=== PATIENT | female | born 1930 | race Caucasian/White ===

== ENCOUNTER 2017-01-16 17:28 | Inpatient (IN) | payer MEDICARE ==
[~2017-01-16] VITALS: Ht 157.5 cm; Wt 68.6 kg
[2017-01-16] MEDS ORDERED: IPRATRPIUM/ALBUTEROL 0.5/2.5MG 3 ML NEBU. ONE (18:30)
--- NOTE | 2017-01-16 18:32 | PHYS DOC ---
General Chief Complaint: SHORTNESS OF BREATH Stated Complaint: SOA Time Seen by MD: 18:13 Source: patient, family Problems: History of Present Illness Initial Comments Patient with daughter for shortness of breath and cough. Patient states it started on Sunday. Has been increasing since that time. She does have a cough which is nonproductive but sounds wet. Today she's also been short of breath. She apparently went to her physician's office yesterday received a prescription for Zithromax which she didn't get filled. However, there's been no change. She' s had no real fever or chills. There is no runny nose or sore throat. She does have the shortness of breath with cough is noted. There is no chest pain. No nausea vomiting or abdominal pain. She has no change amount of bladder habits and she denies any acute focal extremity or neurologic complaints. She states she does have some chronic swelling in the legs but this is not acutely changed or different. Patient has used Zithromax home as well as an albuterol nebulizer twice today without help. She. Has that from her previous episode of the lung infection last year. Other than as noted there's been nothing done for this home and there are no other increasing or decreasing factors noted. Patient's concerned that she might have pneumonia. She had no chest x-ray done at the doctor's office. Patient's past medical history is remarkable for high blood pressure. She is a nonsmoker and nonuser of ethanol. Allergies: Coded Allergies: Penicillins (Verified Allergy, Intermediate, 01/16/17) Past Medical History Medical History: hypertension Social History Smoker: non-smoker Alcohol: none Review of Systems All Other Systems: Reviewed and Negative Physical Exam General Appearance: WD/WN, no apparent distress Ear, Nose, Throat: normal ENT inspection, normal pharynx Neck: full range of motion, supple, normal inspection Respiratory: no respiratory distress, no accessory muscle use, rhonchi Cardiovascular: regular rate, rhythm, no edema Gastrointestinal: non tender, soft, no organomegaly Back: no CVA tenderness, no vertebral tenderness Extremities: non-tender, normal inspection, swelling Neurologic/Psychiatric: alert, normal mood/affect, oriented x 3 Skin: normal color Lymphatic: no adenopathy Comments Generally this is a delightful elderly female in no acute distress. Vitals are as noted. Pertinent findings on physical exam shows her to have bilateral hearing aids. The throat is clear. Neck is supple without adenopathy or JVD. There's no meningeal signs. Chest shows good airflow. There is no tachypnea. There is no retractions. She verbalizes without difficulty. She does have diffuse rhonchi throughout all lung reyes, somewhat worse on the right. She is in no acute respiratory distress. Cardiac exam shows regular rate and rhythm without murmur. The abdomen is soft and nontender without masses or organomegaly. No peritoneal findings. Back shows no CVA tenderness. Extremities show 1+ bilateral lower extremity edema without redness cord asymmetry or signs of DVT. Patient awake alert oriented and cooperative. Remainder of physical exam is clinically unremarkable. Orders, Labs, Meds Old charts note no prior ER visits within the current system. EKG shows sinus 120. There is left axis deviation. There is a single isolated PVC. There are no acute ST or T-wave changes. Labs today show essentially unremarkable CBC and CMP. Blood gases shows slight hypoxia with pH 746, PCO2 36, and PO2 of 64. Patient is on 2 L in the room at this time. Chest x-ray shows what appears to be left basilar infiltrate with a small pleural effusion. 2010 Patient resting in the ER. Her conditions overall unchanged. She still does appear to be mildly short of breath. I discussed with the patient and her family that given her failure of outpatient treatment of persistent dyspnea, as well as clear findings on chest x-ray, probably the safest course of action would be admission for IV antibiotics, steroids, and breathing treatments. After discussion, she is agreeable to same. I discussed case with Dr. Penny of the hospitalist service who graciously agrees to the patient for admission. I' ve written initial holding orders including antibiotics including Rocephin and Zithromax. Patient does have an allergy to penicillin but is unknown if she's ever been able to take cephalosporins before. I did explain the 10% cross- reactivity wrist family members and the patient, and they accept the risk. We' ll certainly monitor for signs of reaction. Also written for DuoNeb and steroids. Patient is resting at this time awaiting transfer to floor and hospitalist care. BAILEY PATRICIA MD Jan 16, 2017 18:32
[2017-01-16] MEDS ORDERED: IPRATRPIUM/ALBUTEROL 0.5/2.5MG 3 ML NEBU. NEB ONE (18:45)
[2017-01-16] MEDS ORDERED: PREDNISONE 10 MG TABLET PO ONE (18:45)
--- NOTE | 2017-01-16 18:48 | EKG ---
[address] [address] Test Date: 2017-01-16 Test Time: 18:48:04 Pat Name: CRISTAL BAHENA Department: Room: Gender: F Senior Operations Analyst: : 1930 Requested By: BAILEY PATRICIA Order Number: [id number] Reading MD: Measurements Intervals [place] Rate: 120 P: 23 CT: 162 QRS: -26 QRSD: 88 T: 57 QT: 314 QTc: 449 Interpretive Statements SINUS TACHYCARDIA VENTRICULAR PREMATURE COMPLEX(ES) LEFTWARD AXIS LVH WITH REPOLARIZATION ABNORMALITY QRS(T) CONTOUR ABNORMALITY CONSIDER ANTEROSEPTAL MYOCARDIAL DAMAGE ABNORMAL ECG RI6.01 Unconfirmed report No previous ECG available for comparison
[2017-01-16 19:03] LABS: BASO % 1 % (0-3); EOS % 0 % (0-3); HEMATOCRIT 39.4 % (36.0-47.0); HEMOGLOBIN 13.3 g/dL (12.0-15.5); LYMPH # 0.6 x10^3/uL (1.0-4.8); LYMPH % 18 % (24-48); MEAN CORPUSCULAR HEMOGLOBIN 29 pg (25-35); MEAN CORPUSCULAR HGB CONC 34 g/dL (31-37); MEAN CORPUSCULAR VOLUME 86 fL (79-100); MONO # 0.4 x10^3/uL (0.0-1.1); MONO % 12 % (0-9); NEUT # 2.6 x10^3uL (1.8-7.7); NEUT % 70 % (31-73); PLATELET COUNT 154 x10^3/uL (140-400); RED BLOOD COUNT 4.58 x10^6/uL (3.50-5.40); RED CELL DISTRIBUTION WIDTH 15.1 % (11.5-14.5); WHITE BLOOD COUNT 3.7 x10^3/uL (4.0-11.0)
[2017-01-16 19:20] LABS: BGAS PH 7.47 (7.35-7.45)
[2017-01-16 19:42] LABS: ALBUMIN 3.8 g/dL (3.4-5.0); ALBUMIN/GLOBULIN RATIO 1.3 (1.0-1.7); CALCIUM 8.8 mg/dL (8.5-10.1); CREATININE 0.7 mg/dL (0.6-1.0); TOTAL BILIRUBIN 0.3 mg/dL (0.2-1.0); TOTAL PROTEIN 6.7 g/dL (6.4-8.2)
[2017-01-16 20:20] LABS: INFLUENZA A PATIENT NEGATIVE (NEGATIVE); INFLUENZA B PATIENT POSITIVE (NEGATIVE)
--- NOTE | 2017-01-16 21:30 | NUR ---
Shannon Jarrett a 86 y/o female was admitted to Dr Penny's service for pneumonia and influenza B. Pt is accompanied by her 2 granddaughters, Katy and Tressa. Pt settled into room, admission assessment and questions completed. Will proceed with orders and poc.
[2017-01-16 21:52] VITALS: BP 183/92
[2017-01-17] MEDS ORDERED: SIMV20TA3 PO (00:43)
[2017-01-17] MEDS ORDERED: FURO-69 PO (00:43)
[2017-01-17] MEDS ORDERED: LOSA1TAB16 PO (00:43)
[2017-01-17] MEDS ORDERED: POTA10TA5 PO (00:43)
[2017-01-17] MEDS ORDERED: MELO-156 PO (00:43)
[2017-01-17] MEDS ORDERED: DILT180C2 PO (00:43)
[2017-01-17 02:59] VITALS: BP 137/84
[2017-01-17] MEDS: CEFTRIAXONE SODIUM 1 GM in IV NORMAL SALINE 50ML 50 ML IV SCH (03:00)
[2017-01-17] MEDS ORDERED: IV NORMAL SALINE 50ML 50 ML ONE (03:02)
[2017-01-17] MEDS ORDERED: IV NORMAL SALINE 250ML 250 ML ONE ×2 (03:03→03:32)
[2017-01-17] MEDS: AZITHROMYCIN 500 MG in IV NORMAL SALINE 250ML 250 ML IV SCH (03:30)
[2017-01-17] MEDS ORDERED: ACETAMINOPHEN 325 MG TABLET PO PRN (03:45)
[2017-01-17] MEDS: ACETAMINOPHEN 325 MG TABLET PO PRN ×3 (03:45→23:17)
[2017-01-17] MEDS ORDERED: ACETAMINOPHEN 325 MG TABLET PO ONE ×2 (03:49→03:55)
[2017-01-17] MEDS: IPRATRPIUM/ALBUTEROL 0.5/2.5MG 3 ML NEBU. NEB SCH ×5 (04:00→22:07)
[2017-01-17 05:49] VITALS: BP 157/80
[2017-01-17 06:36] LABS: BASO % 0 % (0-3); EOS % 0 % (0-3); HEMATOCRIT 37.2 % (36.0-47.0); HEMOGLOBIN 12.7 g/dL (12.0-15.5); LYMPH # 0.5 x10^3/uL (1.0-4.8); LYMPH % 25 % (24-48); MEAN CORPUSCULAR HEMOGLOBIN 29 pg (25-35); MEAN CORPUSCULAR HGB CONC 34 g/dL (31-37); MEAN CORPUSCULAR VOLUME 85 fL (79-100); MONO # 0.2 x10^3/uL (0.0-1.1); MONO % 10 % (0-9); NEUT # 1.2 x10^3uL (1.8-7.7); NEUT % 64 % (31-73); PLATELET COUNT 147 x10^3/uL (140-400); RED BLOOD COUNT 4.39 x10^6/uL (3.50-5.40); RED CELL DISTRIBUTION WIDTH 14.7 % (11.5-14.5)
[2017-01-17 06:40] LABS: WHITE BLOOD COUNT 1.9 x10^3/uL (4.0-11.0)
[2017-01-17 06:50] LABS: ALBUMIN 3.1 g/dL (3.4-5.0); CALCIUM 8.4 mg/dL (8.5-10.1); CREATININE 0.7 mg/dL (0.6-1.0); MAGNESIUM 1.5 mg/dL (1.8-2.4); POTASSIUM 3.6 mmol/L (3.5-5.1); TOTAL BILIRUBIN 0.2 mg/dL (0.2-1.0); TOTAL PROTEIN 6.3 g/dL (6.4-8.2)
[2017-01-17] MEDS: methylPREDNISolone SOD SUCC PF 125 MG/2 ML VIAL. IV SCH ×4 (07:00→23:19)
[2017-01-17 08:09] LABS: % BANDS 6 % (0-9); % LYMPHS 29 % (24-48); % MONOS 3 % (0-10); % SEGS 62 % (35-66); PLT ESTIMATE DECREASED (ADEQUATE)
[2017-01-17] MEDS: OSELTAMIVIR 75 MG CAPSULE PO SCH ×2 (09:00→20:39)
--- NOTE | 2017-01-17 09:47 | NUR ---
IP: patient is + influenza B, requires droplet precautions until 5 days of treatment.
--- NOTE | 2017-01-17 10:40 | RAD ---
Portable chest, 01/16/2017: History: Shortness of breath No previous chest radiograph is available at this time for comparison purposes. Surgical clips overlie the lower chest to the midline. The heart appears to be within normal limits in size. There is moderate calcific plaquing of aorta. The pulmonary vascularity is normal. There is a moderate left basilar opacity. The appearance suggests partial eventration of the hemidiaphragm versus a mass or dense pulmonary consolidation. There is a suggestion of associated pleural fluid. The right chest is clear. A left shoulder prosthesis is in place. There is severe arthritic change at the right shoulder. IMPRESSION: Large left lower chest opacity with diagnostic considerations including diaphragmatic eventration, dense parenchymal consolidation or a pulmonary mass, with probable pleural fluid. CT scanning is suggested for further evaluation, if not already performed elsewhere.
[2017-01-17 10:53] VITALS: BP 145/77
[2017-01-17 15:01] VITALS: BP 128/64
[2017-01-17] MEDS ORDERED: OMEP20TA PO (16:17)
[2017-01-17] MEDS: DILTIAZEM HCL 180 MG CAP.ER.24H PO SCH (17:00)
--- NOTE | 2017-01-17 17:00 | HP ---
ADMIT DATE: 01/16/2017 HISTORY OF PRESENT ILLNESS: The patient is an 86-year-old female patient, who came to the Emergency Room with a complaint of shortness of breath, cough which is mostly dry, just started last Sunday, has been increasing since that time. She does have cough, which is nonproductive, but sounds with. She apparently went to her physician's office on Sunday and was started on Zithromax, which she did not get filled. She denied any chills, rigors or fever. There is no runny nose or sore throat. Denied any chest pain, denied any nausea, vomiting or abdominal pain. She did complain of diarrhea, but denied any other complaint. She was evaluated in the Emergency Room, was found to be positive for influenza B and chest x-ray showed that she has left lower lobe pneumonia, was admitted for treatment for community-acquired pneumonia and influenza, was started on IV Rocephin, Zithromax and Tamiflu. PAST MEDICAL HISTORY: Significant for hypertension and osteoarthritis. PAST SURGICAL HISTORY: Significant for bilateral total knee arthroplasty, left shoulder replacement, bilateral cataract extraction, tonsillectomy, appendectomy, cholecystectomy, total abdominal hysterectomy and bilateral salpingo-oophorectomy, bilateral carpal tunnel release and right elbow surgery. ALLERGIES: She is allergic to PENICILLIN. MEDICATIONS: She is currently on following medications: She is on Diltiazem 180 mg once a day, furosemide 20 mg once a day, Losartan/hydrochlorothiazide 50/12.5 mg once a day, meloxicam 7.5 mg once a day, potassium chloride mEq once a day and simvastatin 20 mg at bedtime. FAMILY HISTORY: She has one sister who is younger and seemingly healthy, one brother in his 30s in a motor vehicle accident. Her father in his early 90s due to heart failure and mother also in her early 90s due to heart failure. SOCIAL HISTORY: She is , has 4 sons. She has never smoked. Does not drink alcohol; however, she stated that she gambles. She is mostly independent to take care of herself, although she has apparently a very loving and supportive family. REVIEW OF SYSTEMS: The patient denied any blurring of vision, cataract, glaucoma or macular degeneration. Denied any earache, tinnitus or sensorineural deafness. Denied any nosebleeds, stuffy nose or postnasal drip. Denied any sore throat, sore tongue, toothache, hoarseness of voice or difficulty swallowing. Denied any nausea, vomiting, but did complain of diarrhea. Denied any dysuria, frequency or hematuria. Denied any chest pain. Did complain of shortness of breath, cough, which is mostly dry. Denied any dizziness, lightheadedness. Denied any chills, rigors or fever. PHYSICAL EXAMINATION: GENERAL: On arrival to the Emergency Room; she looked well and was clearly in no apparent respiratory distress, slightly pale, no jaundice, cyanosis or thyromegaly. No jugular venous distention. No limb edema. VITAL SIGNS: Her heart rate was 113, blood pressure was 183/92, temperature was 99.9, respiratory rate 20, and oxygen saturation was 96% on 2 liters of oxygen. HEAD, EYES, EARS, NOSE AND THROAT: Showed normocephalic, atraumatic. NECK: Supple. HEART: Showed normal first and second heart sounds with no gallop, rub or murmur. CHEST: Shows central trachea, equally reduced expansion, reduced air entry, sounds with bilateral crepitations with left side crepitation and few scattered rhonchi. ABDOMEN: Distended, soft, nontender. NEUROLOGIC: She was awake, alert, responding appropriately. Cranial nerves intact. EXTREMITIES: She moves extremities without difficulty. She ambulates usually with a cane. LABORATORY DATA: In the Emergency Room showed that her white cell count was 3700, hemoglobin 13.3, hematocrit 39.4, MCV 86 and platelet count of 154,000 with normal manual differential. Serum sodium was 141, potassium 4, chloride 102, bicarbonate 26, anion gap of 13, BUN 11, creatinine 0.7, estimated GFR was 79 mL per minute. Her glucose was 100, calcium was 8.8. Total bilirubin, AST, ALT, alkaline phosphatase were normal. Total protein 6.7. Her arterial blood gases showed a pH of 7.47, pCO2 of 36, pO2 of 64, bicarbonate 25, and oxygen saturation was 93% and FiO2 21%. Her influenza A was negative. Influenza B was positive. Her chest x-ray showed that she has a large left lower chest opacity with diagnostic consideration including diaphragmatic eventration, dense parenchymal consolidation or pulmonary mass with probable pleural fluid. CT scan is suggested for further evaluation if not already performed elsewhere. ASSESSMENT AND PLAN: The patient was admitted with community-acquired pneumonia, influenza. We will start her on IV ceftriaxone, Zithromax as well as Tamiflu. We will continue with all her medication and follow her closely. YOLY MAGUIRE MD DR: AGUSTIN/jo ann JOB#: [id number] / [id number]
[2017-01-17 19:30] VITALS: BP 139/73
[2017-01-17] MEDS: ACETAMINOPHEN/CODEINE 300/30MG TABLET PO PRN (20:39)
[2017-01-17] MEDS: GUAIFENESIN ER 600 MG TABLET.ER PO SCH (20:40)
[2017-01-17] MEDS: SIMVASTATIN 20 MG TABLET PO SCH (20:40)
[2017-01-17] MEDS: POTASSIUM CHLORIDE 10 MEQ TABLET.ER. PO SCH (20:40)
[2017-01-17] MEDS ORDERED: MONTELUKAST 10 MG TABLET. PO SCH (21:00)
[2017-01-18 01:00] VITALS: BP 107/50
[2017-01-18] MEDS: CEFTRIAXONE SODIUM 1 GM in IV NORMAL SALINE 50ML 50 ML IV SCH (01:27)
[2017-01-18] MEDS: AZITHROMYCIN 500 MG in IV NORMAL SALINE 250ML 250 ML IV SCH (02:12)
[2017-01-18] MEDS: methylPREDNISolone SOD SUCC PF 125 MG/2 ML VIAL. IV SCH ×2 (05:07→12:15)
[2017-01-18] MEDS: IPRATRPIUM/ALBUTEROL 0.5/2.5MG 3 ML NEBU. NEB SCH ×6 (05:14→22:29)
[2017-01-18 06:00] VITALS: BP 160/74
[2017-01-18 06:30] LABS: BASO % 0 % (0-3); EOS % 0 % (0-3); HEMATOCRIT 39.7 % (36.0-47.0); HEMOGLOBIN 13.4 g/dL (12.0-15.5); LYMPH # 0.4 x10^3/uL (1.0-4.8); LYMPH % 7 % (24-48); MEAN CORPUSCULAR HEMOGLOBIN 29 pg (25-35); MEAN CORPUSCULAR HGB CONC 34 g/dL (31-37); MEAN CORPUSCULAR VOLUME 86 fL (79-100); MONO # 0.1 x10^3/uL (0.0-1.1); MONO % 3 % (0-9); NEUT % 91 % (31-73); PLATELET COUNT 165 x10^3/uL (140-400); RED BLOOD COUNT 4.64 x10^6/uL (3.50-5.40); RED CELL DISTRIBUTION WIDTH 14.9 % (11.5-14.5); WHITE BLOOD COUNT 5.6 x10^3/uL (4.0-11.0)
[2017-01-18 06:48] LABS: ALBUMIN 3.6 g/dL (3.4-5.0); CALCIUM 8.7 mg/dL (8.5-10.1); GFR 52.3; MAGNESIUM 1.8 mg/dL (1.8-2.4); POTASSIUM 3.2 mmol/L (3.5-5.1); TOTAL BILIRUBIN 0.3 mg/dL (0.2-1.0); TOTAL PROTEIN 7.1 g/dL (6.4-8.2)
[2017-01-18] MEDS: LOSARTAN 50 MG TABLET. PO SCH (08:32)
[2017-01-18] MEDS: DILTIAZEM HCL 180 MG CAP.ER.24H PO SCH (08:32)
[2017-01-18] MEDS: PANTOPRAZOLE 40 MG TABLET. PO SCH (08:33)
[2017-01-18] MEDS: GUAIFENESIN ER 600 MG TABLET.ER PO SCH ×2 (08:33→18:26)
[2017-01-18] MEDS: POTASSIUM CHLORIDE 10 MEQ TABLET.ER. PO SCH ×3 (08:33→18:27)
[2017-01-18] MEDS: OSELTAMIVIR 75 MG CAPSULE PO SCH ×2 (08:33→18:26)
[2017-01-18] MEDS ORDERED: FUROSEMIDE 20 MG TABLET PO SCH (09:00)
[2017-01-18] MEDS ORDERED: MELOXICAM 7.5 MG TABLET PO SCH (09:00)
[2017-01-18] MEDS ORDERED: HYDROCHLOROTHIAZIDE 12.5 MG CAPSULE PO SCH (09:00)
[2017-01-18] MEDS ORDERED: IOHEXOL 300 MG/ML 75 ML VIAL. IV ONE (10:15)
[2017-01-18] MEDS ORDERED: CONTRAST GIVEN MC PRN (10:30)
--- NOTE | 2017-01-18 13:36 | RAD ---
CT of the chest with contrast, 01/18/2017: History: Left lower chest mass Multidetector CT imaging was performed following an IV bolus injection of iodinated contrast material. There is moderate calcific plaquing of the thoracic aorta without evidence of aneurysm. Scattered coronary artery calcifications are present. Several small nonspecific thyroid nodules are incompletely delineated, more numerous on the right. Calcified mediastinal and right hilar lymph nodes are present. No mediastinal adenopathy is evident. There is a moderate-sized hiatal hernia. There are adjacent surgical clips. The density seen in the left lower chest on the recent chest radiograph is predominantly due to elevation of left hemidiaphragm. There is mild to moderate underlying atelectasis in the inferior aspect of the left lower lobe and to a lesser degree in the lingula. There are also [id number] linear opacities in the right lung base compatible with atelectasis and/or scarring. Calcified granulomata are present in the right lung. There is moderate multilevel hypertrophic degenerative change in the spine. IMPRESSION: 1. Moderate elevation of the left hemidiaphragm with mild to moderate underlying left basilar atelectasis. 2. Mild linear atelectasis and/or scarring in the right lung base. 3. Calcific plaquing of the aorta and coronary arteries. 4. Nonspecific small thyroid nodules. 5. Moderate-sized hiatal hernia. PQRS Compliance Statement: One or more of the following individualized dose reduction techniques were utilized for this examination: 1. Automated exposure control 2. Adjustment of the mA and/or kV according to patient size 3. Use of iterative reconstruction technique
[2017-01-18] MEDS ORDERED: VIT1CAPS12 PO (13:54)
[2017-01-18] MEDS ORDERED: VIT1CAPS11 PO (13:56)
[2017-01-18 14:58] VITALS: BP 116/62
[2017-01-18] MEDS: SIMVASTATIN 20 MG TABLET PO SCH (17:20)
[2017-01-18] MEDS: MULTIVITAMIN PRESERVISION CAPSULE. PO SCH ×2 (18:26→18:27)
[2017-01-18] MEDS: MONTELUKAST 10 MG TABLET. PO SCH (18:27)
[2017-01-18 19:32] VITALS: BP 156/75
[2017-01-18] MEDS: ACETAMINOPHEN 325 MG TABLET PO PRN (20:36)
[2017-01-18 22:45] VITALS: BP 117/66
[2017-01-19] MEDS: AZITHROMYCIN 500 MG in IV NORMAL SALINE 250ML 250 ML IV SCH (00:09)
[2017-01-19] MEDS: CEFTRIAXONE SODIUM 1 GM in IV NORMAL SALINE 50ML 50 ML IV SCH (00:09)
[2017-01-19] MEDS: IPRATRPIUM/ALBUTEROL 0.5/2.5MG 3 ML NEBU. NEB SCH ×6 (04:00→20:18)
[2017-01-19 05:34] VITALS: BP 152/74
[2017-01-19 06:42] LABS: HEMATOCRIT 38.7 % (36.0-47.0); RED BLOOD COUNT 4.55 x10^6/uL (3.50-5.40); RED CELL DISTRIBUTION WIDTH 15.3 % (11.5-14.5); WHITE BLOOD COUNT 11.9 x10^3/uL (4.0-11.0)
[2017-01-19 06:55] LABS: CALCIUM 8.5 mg/dL (8.5-10.1); CREATININE 1.3 mg/dL (0.6-1.0); GFR 38.7; POTASSIUM 3.7 mmol/L (3.5-5.1)
--- NOTE | 2017-01-19 08:15 | PN ---
DATE: 01/18/2017 SUBJECTIVE: The patient is resting, slightly propped up in bed, in no apparent distress. She is definitely more awake and alert. The cough is much less. We did a CT scan of the chest, which showed that there is moderate elevation of the left hemidiaphragm with [id number] underlying left basilar atelectasis, mild linear atelectasis, and/or scarring in the right lung base, calcific plaquing of the aorta and coronary arteries, nonspecific small thyroid nodules, and moderate-sized hiatal hernia. OBJECTIVE: GENERAL: When examining her, she was sitting comfortably in her chair in no apparent respiratory distress. She was pale; no jaundice, cyanosis, or thyromegaly. No jugular venous distention. No limb edema. VITAL SIGNS: Her heart rate was 80, blood pressure was 160/74, temperature was 98, respiratory rate 20, and oxygen saturation was 93% on room air. HEAD, EYES, EARS, NOSE AND THROAT: Showed normocephalic and atraumatic. NECK: Supple. HEART: Showed normal first and second heart sounds with no gallop, rub, or murmur. CHEST: Clear to auscultation. No crepitation or rhonchi. ABDOMEN: Distended, soft, and nontender. NEUROLOGIC: She was awake and alert, seems to be much more comfortable today, less short of breath. All her cranial nerves are intact. She moves extremities without difficulty. She ambulates with a walker. LABORATORY DATA: Her lab work this morning showed a serum sodium 139, potassium 3.2, chloride 101, bicarbonate 24, anion gap of 14, BUN 23, creatinine 1, estimated GFR was 52 mL per minute, her glucose was 114, calcium was 8.7, and magnesium was 1.8. Total bilirubin, AST, ALT, and alkaline phosphatase were normal. Total protein was 7.1 and albumin was 3.6. Her white cell count is up to 5600, hemoglobin 13.4, hematocrit 39.7, MCV 86, and platelet count 165,000 with manual differential showed 91% polymorphs and 7% lymphocytes. PLAN: The plan is to continue with potassium supplement. Continue with pain medication. Continue with Solu-Medrol, ceftriaxone, Zithromax, and oseltamivir. I will cut down her steroids to 40 mg and repeat her lab work tomorrow and increase her potassium supplement and discontinue the meloxicam. YOLY MAGUIRE MD DR: AGUSTIN/jo ann JOB#: [id number] / [id number]
[2017-01-19] MEDS: methylPREDNISolone SOD SUCC PF 40 MG/ML VIAL. IV SCH ×2 (08:59→20:03)
[2017-01-19] MEDS: POTASSIUM CHLORIDE 10 MEQ TABLET.ER. PO SCH ×2 (09:00→20:02)
[2017-01-19] MEDS: GUAIFENESIN ER 600 MG TABLET.ER PO SCH ×2 (09:00→20:02)
[2017-01-19] MEDS: LOSARTAN 50 MG TABLET. PO SCH (09:00)
[2017-01-19] MEDS ORDERED: SIMVASTATIN 20 MG TABLET PO SCH (09:00)
[2017-01-19] MEDS: MULTIVITAMIN I-VITE TABLET. PO SCH (09:01)
[2017-01-19] MEDS: PANTOPRAZOLE 40 MG TABLET. PO SCH (09:01)
[2017-01-19] MEDS: MULTIVITAMIN PRESERVISION CAPSULE. PO SCH ×2 (09:01→20:03)
[2017-01-19] MEDS: OSELTAMIVIR 75 MG CAPSULE PO SCH ×2 (09:01→20:02)
[2017-01-19] MEDS: ACETAMINOPHEN 325 MG TABLET PO PRN (11:15)
[2017-01-19 11:24] VITALS: BP_SYST 125
[2017-01-19 15:11] LABS: BASO % 0 % (0-3); EOS % 0 % (0-3); HEMATOCRIT 37.4 % (36.0-47.0); HEMOGLOBIN 12.6 g/dL (12.0-15.5); LYMPH # 0.4 x10^3/uL (1.0-4.8); LYMPH % 4 % (24-48); MEAN CORPUSCULAR HEMOGLOBIN 29 pg (25-35); MEAN CORPUSCULAR HGB CONC 34 g/dL (31-37); MEAN CORPUSCULAR VOLUME 86 fL (79-100); MONO # 0.4 x10^3/uL (0.0-1.1); MONO % 4 % (0-9); NEUT # 10.7 x10^3uL (1.8-7.7); NEUT % 93 % (31-73); PLATELET COUNT 177 x10^3/uL (140-400); RED BLOOD COUNT 4.34 x10^6/uL (3.50-5.40); RED CELL DISTRIBUTION WIDTH 15.5 % (11.5-14.5); WHITE BLOOD COUNT 11.5 x10^3/uL (4.0-11.0)
[2017-01-19 15:19] LABS: CALCIUM 8.4 mg/dL (8.5-10.1); CREATININE 1.2 mg/dL (0.6-1.0); GFR 42.4; POTASSIUM 4.7 mmol/L (3.5-5.1)
[2017-01-19] MEDS: ACETAMINOPHEN/CODEINE 300/30MG TABLET PO PRN ×2 (15:19→20:03)
[2017-01-19 15:43] VITALS: BP 112/61
--- NOTE | 2017-01-19 16:10 | RAD ---
Indication worsening shortness of breath. PA and lateral views of the chest were obtained and are compared to a study 3 days earlier. The images, particularly the frontal view is compromised by motion. Note is made of a CT examination of the chest yesterday. A significant change relative to the previous plain film exam is not seen. Elevation of the left hemidiaphragm is noted, unchanged. No definite new or acute finding in the chest is apparent. Left shoulder prosthesis noted IMPRESSION: Slightly limited study secondary to motion. An acute finding or significant change relative to the study 3 days ago is not seen
[2017-01-19] MEDS: MONTELUKAST 10 MG TABLET. PO SCH (17:00)
[2017-01-19] MEDS: DILTIAZEM HCL 180 MG CAP.ER.24H PO SCH (17:15)
[2017-01-19 19:59] VITALS: BP 114/77
[2017-01-19] MEDS ORDERED: AZITHROMYCIN 250 MG TABLET. PO SCH (21:00)
[2017-01-19 22:36] VITALS: BP 149/62
[2017-01-20] MEDS: IPRATRPIUM/ALBUTEROL 0.5/2.5MG 3 ML NEBU. NEB SCH ×3 (00:16→09:40)
[2017-01-20] MEDS: CEFTRIAXONE SODIUM 1 GM in IV NORMAL SALINE 50ML 50 ML IV SCH (00:29)
[2017-01-20] MEDS: ACETAMINOPHEN/CODEINE 300/30MG TABLET PO PRN (01:09)
--- NOTE | 2017-01-20 02:34 | PN ---
DATE: 01/19/2017 SUBJECTIVE: The patient is still complaining of recurrent bouts of cough, although they are less than before. She also complained of shortness of breath on exertion. PHYSICAL EXAMINATION: GENERAL: However, when I examined her this afternoon, she was sitting comfortably in her chair in no apparent respiratory distress, slightly pale, but not jaundiced, cyanosed. No lymphadenopathy or thyromegaly. No jugular venous distension. No lower limb edema. VITAL SIGNS: Her heart rate was 87, blood pressure 125/74, temperature was 98.1, respiratory rate 20, and oxygen saturation was 92% on room air. HEAD, EYES, EARS, NOSE AND THROAT: Showed normocephalic, atraumatic. NECK: Supple. HEART: Showed normal first and second heart sounds with no gallop, rub or murmur. CHEST: Clear to auscultation. No crepitation or rhonchi. ABDOMEN: Distended, soft, nontender. No guarding or rigidity. No organomegaly. Hernial orifices intact. Bowel sounds normal. NEUROLOGIC: She is awake, alert, somewhat hard of hearing, but all her cranial nerves are intact. She moves extremities without difficulty. She ambulates with a walker. Her intake over the last 24-hour was 1250. No output was recorded. LABORATORY DATA: Her lab work this morning showed a white cell count of 11,900, hemoglobin 13, hematocrit 39, MCV 85 and platelet count of 190,000. Her chemistry showed a serum sodium 137, potassium 3.7, chloride 99, bicarbonate 23, anion gap of 15, her BUN of 41, creatinine 1.3, estimated GFR was 38.7 and her glucose was 149, calcium was 8.5. ASSESSMENT: 1. Influenza A. To continue with the Tamiflu. 2. Community-acquired pneumonia. To continue with ceftriaxone and Zithromax. We will continue with all her current medications. I would cut back on her steroids and evaluate her tomorrow and if she is feeling ready to be discharged, we will let her go home tomorrow. YOLY MAGUIRE MD DR: AGUSTIN/jo ann JOB#: [id number] / [id number]
[2017-01-20 05:27] VITALS: BP 157/70
[2017-01-20 09:29] VITALS: BP 155/71
[2017-01-20] MEDS: methylPREDNISolone SOD SUCC PF 40 MG/ML VIAL. IV SCH (10:10)
[2017-01-20] MEDS: MULTIVITAMIN I-VITE TABLET. PO SCH (10:10)
[2017-01-20] MEDS: LOSARTAN 50 MG TABLET. PO SCH (10:11)
[2017-01-20] MEDS: GUAIFENESIN ER 600 MG TABLET.ER PO SCH (10:11)
[2017-01-20] MEDS: POTASSIUM CHLORIDE 10 MEQ TABLET.ER. PO SCH (10:11)
[2017-01-20] MEDS: MULTIVITAMIN PRESERVISION CAPSULE. PO SCH (10:11)
[2017-01-20] MEDS: PANTOPRAZOLE 40 MG TABLET. PO SCH (10:12)
[2017-01-20] MEDS: OSELTAMIVIR 75 MG CAPSULE PO SCH (10:12)
[2017-01-20 15:24] VITALS: BP 144/70
[2017-01-20] MEDS ORDERED: OSEL75CA PO (16:31)
[2017-01-20] MEDS ORDERED: AZIT250T PO (16:31)
[2017-01-20] MEDS ORDERED: ACET-704 PO (16:31)
[2017-01-20] MEDS ORDERED: CEFP200T PO (16:31)
[2017-01-20 16:35] VITALS: BP 144/70
[2017-01-20] MEDS: MONTELUKAST 10 MG TABLET. PO SCH (16:35)
[2017-01-20] MEDS: DILTIAZEM HCL 180 MG CAP.ER.24H PO SCH (16:35)
--- NOTE | 2017-01-20 17:54 | NUR ---
D/C teaching and perscriptions given to pt and her granddaughter, pt d/c A&Ox4 via w/c accompanied by family member and MILKA Wolfe to veh at [facility] front entrance.
--- NOTE | 2017-01-20 18:13 | DS ---
DATE OF DISCHARGE: 01/17/2017 HOSPITAL COURSE: The patient is an 86-year-old female patient who was admitted with shortness of breath, recurrent bouts of cough, mostly dry and was evaluated in the Emergency Room, was found to be positive for influenza B. Her chest x-ray also showed that she has left lower lobe infiltrate and she was started on Tamiflu as well as IV ceftriaxone, IV Zithromax together as she has also wheezing, she was started on steroids as well as nebulized albuterol and Atrovent. She did actually very well. Her cough has mostly subsided. She denied any chest tightness or shortness of breath. OBJECTIVE: GENERAL: When I examined her today, she was sitting comfortably in her chair in no apparent respiratory distress. She was pale, but no jaundice, cyanosis, or thyromegaly. No jugular venous distension. No limb edema. VITAL SIGNS: Her heart rate was 84, blood pressure 144/70, temperature was 97.7, respiratory rate 24 and oxygen saturation was 92% on room air. She maintained her oxygen saturations even when we walked about 20 feet around 90-91% on room air. HEAD, EYES, EARS, NOSE AND THROAT: Showed normocephalic, atraumatic. NECK: Supple. HEART: Showed normal first and second heart sounds with no gallop, rub or murmur. CHEST: Clear to auscultation. No crepitation or rhonchi. ABDOMEN: Distended, soft, nontender. No guarding or rigidity. No organomegaly. Hernial orifices intact. Bowel sounds normal. NEUROLOGIC: She was hard of hearing, but otherwise all cranial nerves intact. She moves extremities without difficulty. LABORATORY DATA: Her lab work this morning showed that her serum sodium was 132, potassium 4.7, chloride 97, bicarbonate 21, anion gap of 14, BUN 46, creatinine 1.2, estimated GFR was 42 mL per minute. Her glucose 167. Calcium was 8.4. Her white cell count was 11,500, hemoglobin 12.6, hematocrit 37, MCV 86 and platelet count of 177,000 with a manual differential showed 93% polymorphs, 4% lymphocytes, and 4% monocytes. DISCHARGE MEDICATIONS: The patient was discharged home to continue on following medications: Diltiazem CD 180 mg once a day, losartan/hydrochlorothiazide 50/12.5 one tablet once a day, potassium chloride or Klor-Con 10 mEq twice a day, simvastatin 20 mg at bedtime, multivitamin 1 tablet once a day. I asked her to discontinue her meloxicam. She was also discharged home to continue on Dilantin 200 mg twice a day for 7 days, Zithromax 250 mg once a day for 7 days, Tamiflu 75 mg twice a day for one more day. She also was discharged on the tapering course of steroids as well as a prescription for Tylenol No. 3 as a cough suppressant. FINAL DISCHARGE DIAGNOSES: 1. Influenza B. 2. Community-acquired pneumonia. 3. Hypertension. This seems to be well controlled. 4. Osteoarthritis. YOLY MAGUIRE MD DR: AGUSTIN/jo nan JOB#: [id number] / [id number]
== END 2017-01-20 17:55 | disposition home or self-care (01) | DRG 871 ==
LOC: ER 17:28 → 1 SOUTH 20:10 → ER 21:10
PROVIDERS: ADMIT Internal Medicine; ATTEND Internal Medicine
DX: A41.9 Sepsis, unspecified organism (principal); J10.00 Influenza due to other identified influenza virus with unspecified type of pneumonia; H91.90 Unspecified hearing loss, unspecified ear; I10 Essential (primary) hypertension; Z96.653 Presence of artificial knee joint, bilateral; Z96.612 Presence of left artificial shoulder joint; G56.03 Carpal tunnel syndrome, bilateral upper limbs; M19.90 Unspecified osteoarthritis, unspecified site; Z82.49 Family history of ischemic heart disease and other diseases of the circulatory system; Z90.710 Acquired absence of both cervix and uterus; Z98.41 Cataract extraction status, right eye; Z98.42 Cataract extraction status, left eye; Z88.0 Allergy status to penicillin
CPT/HCPCS: 36415; 71010; 71020; 71260; 80048; 80053; 82803; 83735; 85007; 85027; 87040; 87804; 93005; 94640; 94760; J0456; J0696; J2920; J2930; J7050; J7512; J7620; Q9967; 97110; 97530; 97535; 99285-25

== ENCOUNTER 2017-04-21 21:31 | Inpatient (IN) | payer MEDICARE, BC ==
[~2017-04-21] VITALS: Ht 157.5 cm; Wt 70.1 kg
[~2017-04-21 21:31] MED LIST: ACET-704 PO; AZIT250T PO; CEFP200T PO; DILT180C2 PO; FURO-69 PO; LOSA1TAB16 PO; MELO7.5T29 PO; OMEP20TA8 PO; OSEL75CA PO; POTA10TA5 PO; SIMV20TA3 PO; VIT1CAPS11 PO; VIT1CAPS12 PO
[2017-04-21] MEDS ORDERED: IPRATRPIUM/ALBUTEROL 0.5/2.5MG 3 ML NEBU. NEB ONE (22:15)
[2017-04-21 22:30] LABS: BASO % 1 % (0-3); EOS # 0.1 x10^3/uL (0.0-0.7); EOS % 2 % (0-3); HEMATOCRIT 38.5 % (36.0-47.0); HEMOGLOBIN 13.3 g/dL (12.0-15.5); LYMPH # 1.5 x10^3/uL (1.0-4.8); LYMPH % 25 % (24-48); MEAN CORPUSCULAR HEMOGLOBIN 30 pg (25-35); MEAN CORPUSCULAR HGB CONC 35 g/dL (31-37); MEAN CORPUSCULAR VOLUME 86 fL (79-100); MONO # 0.6 x10^3/uL (0.0-1.1); MONO % 9 % (0-9); NEUT # 3.7 x10^3uL (1.8-7.7); NEUT % 63 % (31-73); PLATELET COUNT 193 x10^3/uL (140-400); RED BLOOD COUNT 4.47 x10^6/uL (3.50-5.40); WHITE BLOOD COUNT 5.9 x10^3/uL (4.0-11.0)
[2017-04-21 22:44] LABS: ALBUMIN 3.9 g/dL (3.4-5.0); DIRECT BILIRUBIN 0.4 mg/dL (0.0-0.2); GFR 52.3; POTASSIUM 3.4 mmol/L (3.5-5.1); TOTAL BILIRUBIN 0.7 mg/dL (0.2-1.0); TOTAL PROTEIN 6.6 g/dL (6.4-8.2)
[2017-04-21] MEDS ORDERED: ONDANSETRON PF 4 MG/2 ML VIAL. IV PRN (23:30)
[2017-04-21] MEDS ORDERED: MORPHINE SULFATE 2 MG/ML DISP.SYRIN. IV PRN (23:30)
--- NOTE | 2017-04-22 00:06 | PHYS DOC ---
Past History Past Medical History: Hypertension Past Surgical History: Hysterectomy Alcohol Use: None Drug Use: None Adult General Chief Complaint Chief Complaint: abdominal pain HPI HPI 86-year-old female presenting to the emergency department today with epigastric abdominal pain. She also feels weak and mildly short of breath. She describes the pain as a burning aching pain that radiates to the back, the pain is intermittent dull mild and without alleviating factors. She denies vomiting but does feel mildly nauseous. She denies fevers chills chest pain. Review of systems is negative for chest pain, fevers, vomiting, blood in stool. All other review of systems is negative unless otherwise noted in history of present illness. ED course: 86-year-old female presenting to the emergency department with epigastric abdominal pain shortness of breath and malaise. Triage vital signs mild chronic hypertension normal heart rate. Afebrile. Pertinent physical exam findings showed clear lungs auscultation. Abdomen is soft and nontender. Otherwise unremarkable. Pleasant elderly female. Blood work obtained along with EKG. EKG reviewed by myself shows sinus rhythm with a few PACs. Regular rate. [place] is normal. Intervals are within normal limits. Patient is minimal ST depression in the lateral leads. No previous for comparison. Chest x-ray obtained which is similar to previous on January 192016. No obvious hematoma or pneumothorax present. No obvious infiltrate. Blood work obtained which showed mildly low potassium and elevated lipase suggestive of acute pancreatitis. The patient was placed nothing by mouth IV fluids were given along with pain and nausea medications. She was then admitted for further evaluation workup and care. CT the abdomen pelvis was ordered upon admission. Review of Systems Review of Systems SEE ABOVE. Current Medications Current Medications Current Medications Medications (Trade) Dose Ordered Sig/Lilliam Start Time Stop Time Status Last Admin Dose Admin Albuterol/ Ipratropium (Duoneb) 3 ml 1X ONCE 04/21/17 22:15 04/21/17 22:16 DC 04/21/17 22:11 3 ML Sodium Chloride 1,000 ml @ 125 mls/hr Q8H 04/21/17 23:19 04/22/17 23:18 UNV Allergies Allergies Allergies Coded Allergies Type Severity Reaction Last Updated Verified Penicillins Allergy Intermediate 01/17/17 Yes Physical Exam Physical Exam Constitutional: Well developed, well nourished, no acute distress, non-toxic appearance. HENT: Normocephalic, atraumatic, bilateral external ears normal, oropharynx moist, no oral exudates, nose normal. [] Eyes: PERRLA, EOMI, conjunctiva normal, no discharge. [] Neck: Normal range of motion, no tenderness, supple, no stridor. [] Cardiovascular:Heart rate regular rhythm, no murmur [] Lungs & Thorax: Bilateral breath sounds clear to auscultation [] Abdomen: Soft nontender abdomen without rebound tenderness or guarding present. Negative McBurneys point. Negative Massey sign. No ecchymosis present. Skin: Warm, dry, no erythema, no rash. [] Back: No tenderness, no CVA tenderness. [] Extremities: No tenderness, no cyanosis, no clubbing, ROM intact, no edema. [] Neurologic: Alert and oriented X 3, normal motor function, normal sensory function, no focal deficits noted. [] Psychologic: Affect normal, judgement normal, mood normal. [] Current Patient Data Vital Signs Vital Signs Date Time Temp Pulse Resp B/P (MAP) Pulse Ox O2 Delivery O2 Flow Rate FiO2 04/21/17 23:52 98.2 04/21/17 22:13 97 Room Air 04/21/17 21:45 91 20 Lab Results Laboratory Tests Test 04/21/17 22:13 White Blood Count 5.9 x10^3/uL (4.0-11.0) Red Blood Count 4.47 x10^6/uL (3.50-5.40) Hemoglobin 13.3 g/dL (12.0-15.5) Hematocrit 38.5 % (36.0-47.0) Mean Corpuscular Volume 86 fL (79-100) Mean Corpuscular Hemoglobin 30 pg (25-35) Mean Corpuscular Hemoglobin Concent 35 g/dL (31-37) Red Cell Distribution Width 14.0 % (11.5-14.5) Platelet Count 193 x10^3/uL (140-400) Neutrophils (%) (Auto) 63 % (31-73) Lymphocytes (%) (Auto) 25 % (24-48) Monocytes (%) (Auto) 9 % (0-9) Eosinophils (%) (Auto) 2 % (0-3) Basophils (%) (Auto) 1 % (0-3) Neutrophils # (Auto) 3.7 x10^3uL (1.8-7.7) Lymphocytes # (Auto) 1.5 x10^3/uL (1.0-4.8) Monocytes # (Auto) 0.6 x10^3/uL (0.0-1.1) Eosinophils # (Auto) 0.1 x10^3/uL (0.0-0.7) Basophils # (Auto) 0.0 x10^3/uL (0.0-0.2) Sodium Level 142 mmol/L (136-145) Potassium Level 3.4 mmol/L (3.5-5.1) L Chloride Level 102 mmol/L (98-107) Carbon Dioxide Level 31 mmol/L (21-32) Anion Gap 9 (6-14) Blood Urea Nitrogen 29 mg/dL (7-20) H Creatinine 1.0 mg/dL (0.6-1.0) Estimated GFR (Cockcroft-Gault) 52.3 Glucose Level 101 mg/dL (70-99) H Calcium Level 9.0 mg/dL (8.5-10.1) Total Bilirubin 0.7 mg/dL (0.2-1.0) Direct Bilirubin 0.4 mg/dL (0.0-0.2) H Aspartate Amino Transferase (AST) 87 U/L (15-37) H Alanine Aminotransferase (ALT) 34 U/L (14-59) Alkaline Phosphatase 225 U/L (46-116) H Troponin I Quantitative < 0.017 ng/mL (0-0.055) Total Protein 6.6 g/dL (6.4-8.2) Albumin 3.9 g/dL (3.4-5.0) Lipase 748 U/L (73-393) H EKG EKG [] Radiology/Procedures Radiology/Procedures [] Course & Med Decision Making Course & Med Decision Making Pertinent Labs and Imaging studies reviewed. (See chart for details) [] Dragon Disclaimer Dragon Disclaimer This chart was dictated in whole or in part using Voice Recognition software in a busy, high-work load, and often noisy Emergency Department environment. It may contain unintended and wholly unrecognized errors or omissions. Departure Departure: Impression: Primary Impression: Pancreatitis Additional Impressions: Hypokalemia Epigastric abdominal pain Shortness of breath Malaise and fatigue Disposition: ADMITTED INPATIENT Admitting Physician: Shaneka Mitchell Condition: STABLE Referrals: ARTHUR PURVIS (PCP) Problem Qualifiers TORIBIO LEACH MD Apr 22, 2017 00:06
[2017-04-22] MEDS ORDERED: CONTRAST GIVEN MC PRN (00:15)
[2017-04-22] MEDS ORDERED: IOHEXOL 300 MG/ML 75 ML VIAL. IV ONE (00:15)
[2017-04-22] MEDS: IV NORMAL SALINE 1,000ML 1,000 ML IV SCH ×3 (00:49→15:30)
--- NOTE | 2017-04-22 01:45 | RAD ---
CT scan of the abdomen and pelvis with contrast 04/22/2017 CLINICAL HISTORY: Elevated lipase. TECHNIQUE: After the intravenous administration of 60 cc of Omnipaque 300, contiguous, 3 mm axial sections were obtained through the abdomen and pelvis. One or more of the following individualized dose reduction techniques were utilized for this study: 1. Automated exposure control. 2. Adjustment of the mA and/or kV according to patient size. 3. Use of iterative reconstruction technique. FINDINGS: Images through the lung bases demonstrate mild cardiomegaly. There is a moderate sized sliding hiatal hernia. Dependent areas of subsegmental atelectasis are seen involving both lower lobes, left greater than right and the lingula. The liver, spleen, adrenal glands and right kidney are within normal limits. A 2 mm nonobstructing calculus is seen involving the lower pole left kidney. Fatty infiltration of the pancreas is seen. No focal abnormality of the pancreas is noted. There is no CT evidence of pancreatitis. No pancreatic pseudocyst is seen. Surgical clips are seen within the gallbladder fossa consistent with a cholecystectomy. Moderate atherosclerotic calcification of the abdominal aorta is seen. The abdominal aorta tapers normally. No free fluid or free air is seen within the abdomen. There is no evidence of bowel obstruction. Images through the pelvis demonstrate the urinary bladder distended with urine. Surgical clips are seen within the lower anterior abdominal wall. No free fluid is seen. Calcifications are seen within the pelvis consistent with phleboliths. Very mild S-shaped curvature of the thoracolumbar spine is seen. Degenerative changes are seen involving the lower thoracic and throughout the lumbar spine and both hips. IMPRESSION: No acute abnormality is seen. Electronically signed by: Luis Armando Ventura MD (04/22/2017 1:41 AM)
[2017-04-22 01:48] VITALS: BP 155/61
[2017-04-22 06:06] VITALS: BP 152/71
[2017-04-22] MEDS ORDERED: POTASSIUM CHLORIDE 10 MEQ CAPSULE.ER. PO ONE ×2 (06:45→09:45)
[2017-04-22 06:54] LABS: BASO % 0 % (0-3); EOS # 0.1 x10^3/uL (0.0-0.7); EOS % 2 % (0-3); HEMATOCRIT 34.1 % (36.0-47.0); HEMOGLOBIN 11.9 g/dL (12.0-15.5); LYMPH # 0.7 x10^3/uL (1.0-4.8); LYMPH % 17 % (24-48); MEAN CORPUSCULAR HEMOGLOBIN 30 pg (25-35); MEAN CORPUSCULAR HGB CONC 35 g/dL (31-37); MEAN CORPUSCULAR VOLUME 86 fL (79-100); MONO # 0.4 x10^3/uL (0.0-1.1); MONO % 9 % (0-9); NEUT # 3.2 x10^3uL (1.8-7.7); NEUT % 73 % (31-73); PLATELET COUNT 154 x10^3/uL (140-400); RED BLOOD COUNT 3.96 x10^6/uL (3.50-5.40); RED CELL DISTRIBUTION WIDTH 13.8 % (11.5-14.5); WHITE BLOOD COUNT 4.4 x10^3/uL (4.0-11.0)
[2017-04-22 07:00] LABS: CALCIUM 8.5 mg/dL (8.5-10.1); CREATININE 0.8 mg/dL (0.6-1.0); GFR 67.7
[2017-04-22] MEDS: POTASSIUM CHLORIDE 40 MEQ in IV NORMAL SALINE 1,000ML 1,000 ML IV SCH ×2 (07:00→19:03)
--- NOTE | 2017-04-22 07:10 | EKG ---
[address] [address] Test Date: 2017-04-21 Test Time: 21:49:25 Pat Name: CRISTAL BAHENA Department: Room: [facility] A Gender: F Infection Control Rn: LUIZ : 1930 Requested By: KYARA SALGUERO Order Number: [id number] Reading MD: Measurements Intervals Carpenter Rate: 95 P: 1 RI: 176 QRS: -12 QRSD: 92 T: 85 QT: 354 QTc: 448 Interpretive Statements SINUS RHYTHM ATRIAL PREMATURE COMPLEX(ES) LEFTWARD AXIS QRS(T) CONTOUR ABNORMALITY CONSIDER ANTEROLATERAL MYOCARDIAL DAMAGE RI6.01 Unconfirmed report No previous ECG available for comparison
[2017-04-22] MEDS: PANTOPRAZOLE IV PUSH 40 MG VIAL. IVP SCH (07:30)
[2017-04-22 08:18] LABS: ALBUMIN 3.2 g/dL (3.4-5.0); DIRECT BILIRUBIN 0.3 mg/dL (0.0-0.2); TOTAL BILIRUBIN 0.8 mg/dL (0.2-1.0); TOTAL PROTEIN 5.8 g/dL (6.4-8.2)
--- NOTE | 2017-04-22 08:23 | RAD ---
Portable chest, 04/21/2017: History: Shortness of breath, chest pain Comparison is made to a study from 01/19/2017. There is unchanged elevation of the left hemidiaphragm. The heart is within normal limits in size. Surgical clips are projected over the region of the patient's known hiatal hernia. There is calcific plaquing of the aorta. The pulmonary vascularity is normal. There is mild bibasilar linear atelectasis and/or scarring. There are calcified granulomata in the right upper lobe. The upper lung reyes are otherwise clear. The bony structures are demineralized. A left shoulder prosthesis is in place. There is moderate arthritic change at the right shoulder. IMPRESSION: 1. Chronic elevation of the left hemidiaphragm. 2. Mild bibasilar linear atelectasis and/or scarring. 3. Hiatal hernia.
[2017-04-22] MEDS: POTASSIUM CHLORIDE 10 MEQ TABLET.ER. PO SCH ×2 (09:30→19:03)
[2017-04-22] MEDS ORDERED: POTASSIUM CHLORIDE 10 MEQ TABLET.ER. PO ONE (09:45)
[2017-04-22] MEDS ORDERED: MELO7.5T29 PO (09:58)
[2017-04-22] MEDS ORDERED: VIT1TABL34 PO (10:06)
[2017-04-22 11:00] VITALS: BP 150/67
--- NOTE | 2017-04-22 11:28 | RAD ---
Abdominal ultrasound, 04/22/2017: History: Pancreatitis The gallbladder is surgically absent. The common hepatic duct measures 8 mm which is within normal limits for the postcholecystectomy state. There is no evidence of a hepatic mass. The pancreas was obscured by overlying bowel. The spleen is of normal size. No renal abnormality is detected. There is calcific plaquing of the abdominal aorta without evidence of aneurysm. The visualized portions of inferior vena cava are unremarkable. No free fluid is evident in the abdomen. IMPRESSION: 1. Status post cholecystectomy. 2. The abdominal ultrasound is otherwise unremarkable, although the pancreas was obscured by overlying bowel.
[2017-04-22] MEDS: NAPROXEN 250 MG TABLET PO PRN (12:25)
[2017-04-22 15:00] VITALS: BP 150/78
--- NOTE | 2017-04-22 16:11 | PDOC1 ---
History of Present Illness Reason for Visit: epigastric pain, nausea, abdominal pain History of Present Illness This is a very pleasant 86-year-old female who presented to the emergency room complaining of mild abdominal pain with burning straight to the back. And mild shortness of breath. Of note is that she had taken a trip to [place]. Spent a hours in the car. She took she was complaining of some lower extremity swelling and was given Lasix by her primary care provider. She took several extra Lasix doses this week before coming to the emergency room she took 31 time and then she took one then 2 then 3 Lasix. Didn't know the exact dose of them. She is also on hydrochlorothiazide. No chest pain, no diarrhea, no vomiting, mild nausea. Chief Complaint: SHORTNESS OF BREATH, epigastric pain, nausea Allergies: Coded Allergies: Penicillins (Verified Allergy, Intermediate, 01/17/17) Past Medical History Cardiac: HTN Pulmonary: No pertinent hx GI: No pertinent hx Heme/Onc: No pertinent hx Hepatobiliary: No pertinent hx Psych: No pertinent hx Musculoskeletal: Osteoarthritis Rheumatologic: No pertinent hx Infectious disease: No pertinent hx ENT: No pertinent hx Renal/: No pertinent hx Endocrine: No pertinent hx Dermatology: No pertinent hx Past Surgical History: Cholecystectomy, Hysterectomy Past Social History Smoke: No Occupation: retired Alcohol: none Drugs: None Lives: Alone Review of Systems Review Of Systems Fourteen system , review of systems has been reviewed. See HPI for pertinent positives and negative responses, other murdock all other systems are negative, non pertinent or non contributory Constitutional: No: Fever, Chills, Sweats, Weakness, Malaise, Other Eyes: No: Blurry vision, Decreased vision, Double vision, Dry eyes, Excessive tearing, Eye Pain, Itchy Eyes, Loss of vision, Photophobia, Scotomata, Uses contacts, Uses glasses ENT: No: Ear pain, Ear discharge, Nose pain, Nose discharge, Nose congestion, Mouth pain, Mouth swelling, Throat pain, Throat swelling Respiratory: YES: Shortness of breath Cardiovascular: No: Chest Pain, Palpitations, Orthopnea, Paroxysmal Noc. Dyspnea, Edema, Lt Headedness Gastrointestinal: YES: Nausea, Abdominal Pain Genitourinary: No: Change in Menstrual Cycle, Dysmenorrhea, Dyspareunia, Dysuria, Flank Pain, Genital Discharge, Genital Ulcers, Henaturia, Incontinence , Irregular/heavy Menses, Nocturia, Pelvic Pain, Scrotal Mass/pain, Slowing Urinary Stream, Urinary Frequency/urgency, Vulvar/vaginal Symptoms Musculoskeletal: No: Gait Disturbance, Joint Pain, Joint Stiffness, Joint Swelling, Muscle Pain, Muscular Weakness, Pain In:, Swelling In: SKIN: YES: Warm, Dry, No Rashes, No: Cool, Diaphoretic, Cyanotic, Rash Neurological: No: Behavorial Changes, Bowel/Bladder ControlChng, Confusion, Dizziness, Gait Disturbance, Headaches, Impaired Coord/balance, Memory Loss, Numbness/Tingling, Seizures, Speech Problems, Tremors, Visual Changes, Weakness Allergies: Coded Allergies: Penicillins (Verified Allergy, Intermediate, 01/17/17) Medications Current Medications Albuterol/ Ipratropium (Duoneb) 3 ml 1X ONCE NEB Last administered on 22:11; Start 04/21/17 at 22:15; Stop 04/21/17 at 22:16; Status DC Ondansetron HCl (Zofran) 4 mg PRN Q4HRS PRN IV NAUSEA/VOMITING; Start 04/21/17 at 23:30; Stop 04/22/17 at 23:29 Morphine Sulfate (Morphine 2mg Syringe) 2 mg PRN Q2HR PRN IV PAIN; Start at 23:30; Stop 04/22/17 at 23:29 Sodium Chloride 1,000 ml @ 125 mls/hr Q8H IV Last administered on 04/22/17 00: 49; Start 04/21/17 at 23:30; Stop 04/22/17 at 23:29 Iohexol (Omnipaque 300 Mg/ml) 75 ml 1X ONCE IV Last administered on 04/22/17 01:02; Start 04/22/17 at 00:15; Stop 04/22/17 at 00:16; Status DC Info (Do NOT chart on this entry -- for MONITORING) 1 each PRN DAILY PRN MC SEE COMMENTS; Start 04/22/17 at 00:15; Stop 04/24/17 at 00:14 Pantoprazole Sodium (Protonix Vial) 40 mg DAILYAC IVP Last administered on 07:30; Start 04/22/17 at 07:30 Potassium Chloride 40 meq/ Sodium Chloride 1,020 ml @ 100 mls/hr [id number] IV Last administered on 04/22/17 07:00; Start 04/22/17 at 07:00 Potassium Chloride (Micro-K) 10 meq 1X ONCE PO ; Start 04/22/17 at 06:45; Stop 04/22/17 at 06:46; Status DC Diltiazem HCl (Cardizem 24hr Cd) 180 mg DAILYWSUP PO ; Start 04/22/17 at 17:00; Stop 04/22/17 at 17:00; Status DC Potassium Chloride (Klor-Con) 10 meq BID PO Last administered on 04/22/17 09:30 ; Start 04/22/17 at 09:30 Potassium Chloride (Micro-K) 10 meq 1X ONCE PO ; Start 04/22/17 at 09:45; Stop 04/22/17 at 09:45; Status DC Potassium Chloride (Klor-Con) 10 meq 1X ONCE PO ; Start 04/22/17 at 09:45; Stop 04/22/17 at 09:46; Status DC Diltiazem HCl (Cardizem 24hr Cd) 180 mg DAILYWSUP PO Last administered on 11:15; Start 04/22/17 at 11:15; Stop 04/22/17 at 13:00; Status DC Naproxen (Naprosyn) 250 mg PRN DAILY PRN PO PAIN Last administered on 04/22/17 12:25; Start 04/22/17 at 11:45 Diltiazem HCl (Cardizem 24hr Cd) 180 mg DAILYWSUP PO ; Start 04/23/17 at 17:00 Active Scripts Active Reported Preservision Areds Tablet (Vit A/Vit C/Vit E/Zinc/Copper) 1 Each Tablet 1 Each PO BID Meloxicam 7.5 Mg Tablet 7.5 Mg PO DAILY Ocuvite Softgel (Vit C/Vit E/Lutein/Min/[place]-3) 1 Each Capsule 1 Each PO DAILY08 Preservision Areds Softgel (Vit A/Vit C/Vit E/Zinc/Copper) 1 Each Capsule 1 Each PO BID Simvastatin 20 Mg Tablet 1 Tab PO Q3DAYS Cardizem Cd (Diltiazem Hcl) 180 Mg Cap.er.24h 180 Mg PO DAILYWSUP Losartan-Hctz 50-12.5 Mg Tab (Losartan/Hydrochlorothiazide) 1 Each Tablet 1 Tab PO DAILY Klor-Con 10 (Potassium Chloride) 10 Meq Tablet.er 1 Tab PO BID Exam Vital Signs Vital Signs Date Time Temp Pulse Resp B/P (MAP) Pulse Ox O2 Delivery O2 Flow Rate FiO2 04/22/17 15:00 98.1 77 18 150/78 (102) 93 Room Air General Appearance: Alert, Oriented X3, Cooperative, No acute distress HEENT: Atraumatic, PERRLA, Mucous membr. moist/pink Respiratory: Clear to auscultation, Normal air movement Heart: Regular rate, Normal S1, Normal S2, No murmurs Cardiac: other (murmur heard at the pulmonic area) BREASTS: Not examined Abdominal: Normal bowel sounds, Soft (mild epigastric tenderness, no masses), Other Extremities: No edema Skin: No rashes, No breakdown, No significant lesion Neuro: Cranial nerves 3-12 NL Psych/Mental Status: Mental status NL, Mood NL Assessment/Plan Assessment/Plan #1 hypokalemia #2 mild pancreatitis possibly secondary to Lasix-triglycerides are still pending #3 hypertension 4.elevated lilver function tests questionable etiology-this can also happen with Lasix 5.Hiatal hernia Plan-IV fluids. dc Lasix. No antibiotics. Recheck labs in the am.Replace potassium. COURSE Allergies Coded Allergies Type Severity Reaction Last Updated Verified Penicillins Allergy Intermediate 01/17/17 Yes Laboratory Tests Test 04/21/17 22:13 04/22/17 06:13 White Blood Count 5.9 x10^3/uL (4.0-11.0) 4.4 x10^3/uL (4.0-11.0) Red Blood Count 4.47 x10^6/uL (3.50-5.40) 3.96 x10^6/uL (3.50-5.40) Hemoglobin 13.3 g/dL (12.0-15.5) 11.9 g/dL (12.0-15.5) Hematocrit 38.5 % (36.0-47.0) 34.1 % (36.0-47.0) Mean Corpuscular Volume 86 fL (79-100) 86 fL (79-100) Mean Corpuscular Hemoglobin 30 pg (25-35) 30 pg (25-35) Mean Corpuscular Hemoglobin Concent 35 g/dL (31-37) 35 g/dL (31-37) Red Cell Distribution Width 14.0 % (11.5-14.5) 13.8 % (11.5-14.5) Platelet Count 193 x10^3/uL (140-400) 154 x10^3/uL (140-400) Neutrophils (%) (Auto) 63 % (31-73) 73 % (31-73) Lymphocytes (%) (Auto) 25 % (24-48) 17 % (24-48) Monocytes (%) (Auto) 9 % (0-9) 9 % (0-9) Eosinophils (%) (Auto) 2 % (0-3) 2 % (0-3) Basophils (%) (Auto) 1 % (0-3) 0 % (0-3) Neutrophils # (Auto) 3.7 x10^3uL (1.8-7.7) 3.2 x10^3uL (1.8-7.7) Lymphocytes # (Auto) 1.5 x10^3/uL (1.0-4.8) 0.7 x10^3/uL (1.0-4.8) Monocytes # (Auto) 0.6 x10^3/uL (0.0-1.1) 0.4 x10^3/uL (0.0-1.1) Eosinophils # (Auto) 0.1 x10^3/uL (0.0-0.7) 0.1 x10^3/uL (0.0-0.7) Basophils # (Auto) 0.0 x10^3/uL (0.0-0.2) 0.0 x10^3/uL (0.0-0.2) Sodium Level 142 mmol/L (136-145) 144 mmol/L (136-145) Potassium Level 3.4 mmol/L (3.5-5.1) 3.0 mmol/L (3.5-5.1) Chloride Level 102 mmol/L (98-107) 106 mmol/L (98-107) Carbon Dioxide Level 31 mmol/L (21-32) 30 mmol/L (21-32) Anion Gap 9 (6-14) 8 (6-14) Blood Urea Nitrogen 29 mg/dL (7-20) 25 mg/dL (7-20) Creatinine 1.0 mg/dL (0.6-1.0) 0.8 mg/dL (0.6-1.0) Estimated GFR (Cockcroft-Gault) 52.3 67.7 Glucose Level 101 mg/dL (70-99) 101 mg/dL (70-99) Calcium Level 9.0 mg/dL (8.5-10.1) 8.5 mg/dL (8.5-10.1) Total Bilirubin 0.7 mg/dL (0.2-1.0) 0.8 mg/dL (0.2-1.0) Direct Bilirubin 0.4 mg/dL (0.0-0.2) 0.3 mg/dL (0.0-0.2) Aspartate Amino Transf (AST/SGOT) 87 U/L (15-37) 262 U/L (15-37) Alanine Aminotransferase (ALT/SGPT) 34 U/L (14-59) 137 U/L (14-59) Alkaline Phosphatase 225 U/L (46-116) 310 U/L (46-116) Troponin I Quantitative < 0.017 ng/mL (0-0.055) Total Protein 6.6 g/dL (6.4-8.2) 5.8 g/dL (6.4-8.2) Albumin 3.9 g/dL (3.4-5.0) 3.2 g/dL (3.4-5.0) Lipase 748 U/L (73-393) 825 U/L (73-393) Triglycerides Level 59 mg/dL (0-150) Current Medications Medications (Trade) Dose Ordered Sig/Lilliam Route PRN Reason Start Time Stop Time Status Last Admin Dose Admin Albuterol/ Ipratropium (Duoneb) 3 ml 1X ONCE NEB 04/21/17 22:15 04/21/17 22:16 DC 04/21/17 22:11 Ondansetron HCl (Zofran) 4 mg PRN Q4HRS PRN IV NAUSEA/VOMITING 04/21/17 23:30 04/22/17 23:29 Morphine Sulfate (Morphine 2mg Syringe) 2 mg PRN Q2HR PRN IV PAIN 04/21/17 23:30 04/22/17 23:29 Sodium Chloride 1,000 ml @ 125 mls/hr Q8H IV 04/21/17 23:30 04/22/17 23:29 04/22/17 00:49 Iohexol (Omnipaque 300 Mg/ml) 75 ml 1X ONCE IV 04/22/17 00:15 04/22/17 00:16 DC 04/22/17 01:02 Info (Do NOT chart on this entry -- for MONITORING) 1 each PRN DAILY PRN MC SEE COMMENTS 04/22/17 00:15 04/24/17 00:14 Pantoprazole Sodium (Protonix Vial) 40 mg DAILYAC IVP 04/22/17 07:30 04/22/17 07:30 Potassium Chloride 40 meq/ Sodium Chloride 1,020 ml @ 100 mls/hr [id number] IV 04/22/17 07:00 04/22/17 07:00 Potassium Chloride (Micro-K) 10 meq 1X ONCE PO 04/22/17 06:45 04/22/17 06:46 DC Diltiazem HCl (Cardizem 24hr Cd) 180 mg DAILYWSUP PO 04/22/17 17:00 04/22/17 17:00 DC Potassium Chloride (Klor-Con) 10 meq BID PO 04/22/17 09:30 04/22/17 09:30 Potassium Chloride (Micro-K) 10 meq 1X ONCE PO 04/22/17 09:45 04/22/17 09:45 DC Potassium Chloride (Klor-Con) 10 meq 1X ONCE PO 04/22/17 09:45 04/22/17 09:46 DC Diltiazem HCl (Cardizem 24hr Cd) 180 mg DAILYWSUP PO 04/22/17 11:15 04/22/17 13:00 DC 04/22/17 11:15 Naproxen (Naprosyn) 250 mg PRN DAILY PRN PO PAIN 04/22/17 11:45 04/22/17 12:25 Diltiazem HCl (Cardizem 24hr Cd) 180 mg DAILYWSUP PO 04/23/17 17:00 Orders Procedure Category Date Status Time Basic Metabolic Panel LAB 04/21/17 Complete 21:33 Cbc W Autodiff LAB 04/21/17 Complete 21:33 Hepatic Panel LAB 04/21/17 Complete 21:33 Lipase LAB 04/21/17 Complete 21:33 Troponin I LAB 04/21/17 Complete 21:33 Pulse Oximetry: [facility] 04/21/17 In Process Standing Order 06:14 Bp Monitoring ER 04/21/17 Transmitted 21:33 Assistant Counsel ER 04/21/17 Transmitted 21:33 Continuous Pulse ER 04/21/17 Transmitted Oximetry 21:33 Saline Lock ER 04/21/17 Transmitted 21:33 Vital Signs ER 04/21/17 Transmitted 21:33 Chest Ap Only RAD 04/21/17 Resulted 21:33 Ipratrpium/Albuterol PHA 04/21/17 Complete 0.5/2.5mg (Duoneb) 22:15 Airway Inhalation RT 04/21/17 Complete Treatment 21:33 [place] Bridge Order ADT 04/21/17 Transmitted 23:19 Code Status CODE 04/21/17 Transmitted 23:19 Vital Signs, Per [facility] 04/21/17 In Process Protocol 23:19 Nothing By Mouth DIET 04/22/17 Transmitted Breakfast Up In Chair With JULIA 04/21/17 In Process Assistance 23:19 Cbc W Autodiff LAB 04/22/17 Complete 06:00 Basic Metabolic Panel LAB 04/22/17 Complete 06:00 Ondansetron Pf PHA 04/21/17 In Process (Zofran) 23:30 Morphine Sulfate PHA 04/21/17 In Process (Morphine 2mg Syringe) 23:30 Iv Normal Saline PHA 04/21/17 In Process 1,000ml (Iv Sodium 23:30 Ct Abd Pelv W/ Iv CT 04/21/17 Resulted Contrst Only 23:19 Iohexol 300 Mg/Ml PHA 04/22/17 Complete (Omnipaque 300 Mg/Ml) 00:15 Contrast Given (Do PHA 04/22/17 In Process Not Chart On This Ent 00:15 Admit Orders ADT 04/22/17 Transmitted Lipase LAB 04/22/17 Complete 06:23 Pantoprazole Iv Push PHA 04/22/17 In Process (Protonix Vial) 07:30 Iv Normal Saline PHA 04/22/17 In Process 1,... W/Potassium 07:00 Potassium Chloride PHA 04/22/17 Complete (Micro-K) 06:45 12 Lead Ekg EKG 04/21/17 Complete Hepatic Panel LAB 04/22/17 Complete 08:01 Diltiazem Hcl PHA 04/22/17 Complete (Cardizem 24hr Cd) 17:00 Abdomen Complete US 04/22/17 Resulted 08:08 Triglycerides LAB 04/22/17 Complete 08:09 Potassium Chloride PHA 04/22/17 In Process (Klor-Con) 09:30 Potassium Chloride PHA 04/22/17 Complete (Micro-K) 09:45 Potassium Chloride PHA 04/22/17 Complete (Klor-Con) 09:45 Diltiazem Hcl PHA 04/22/17 Complete (Cardizem 24hr Cd) 11:15 Naproxen (Naprosyn) PHA 04/22/17 In Process 11:45 Diltiazem Hcl PHA 04/23/17 In Process (Cardizem 24hr Cd) 17:00 Cbc W Autodiff LAB 04/23/17 Verified 05:00 Comprehensive LAB 04/23/17 Verified Metabolic Panel 05:00 Magnesium LAB 04/23/17 Verified 05:00 Vital Signs Date Time Temp Pulse Resp B/P (MAP) Pulse Ox O2 Delivery O2 Flow Rate FiO2 04/22/17 15:00 98.1 77 18 150/78 (102) 93 Room Air KYARA SALGUERO DO Apr 22, 2017 16:11
[2017-04-22 19:09] VITALS: BP 135/69
[2017-04-22 22:21] VITALS: BP 144/70
[2017-04-23] MEDS: POTASSIUM CHLORIDE 40 MEQ in IV NORMAL SALINE 1,000ML 1,000 ML IV SCH (04:08)
[2017-04-23 05:14] VITALS: BP 155/70
[2017-04-23 06:13] LABS: BASO % 1 % (0-3); EOS # 0.2 x10^3/uL (0.0-0.7); EOS % 5 % (0-3); HEMATOCRIT 34.8 % (36.0-47.0); HEMOGLOBIN 11.9 g/dL (12.0-15.5); LYMPH # 0.9 x10^3/uL (1.0-4.8); LYMPH % 22 % (24-48); MEAN CORPUSCULAR HEMOGLOBIN 30 pg (25-35); MEAN CORPUSCULAR HGB CONC 34 g/dL (31-37); MEAN CORPUSCULAR VOLUME 88 fL (79-100); MONO # 0.3 x10^3/uL (0.0-1.1); MONO % 8 % (0-9); NEUT # 2.8 x10^3uL (1.8-7.7); NEUT % 64 % (31-73); PLATELET COUNT 156 x10^3/uL (140-400); RED BLOOD COUNT 3.96 x10^6/uL (3.50-5.40); RED CELL DISTRIBUTION WIDTH 13.9 % (11.5-14.5); WHITE BLOOD COUNT 4.3 x10^3/uL (4.0-11.0)
[2017-04-23 06:33] LABS: ALBUMIN 3.3 g/dL (3.4-5.0); ALBUMIN/GLOBULIN RATIO 1.1 (1.0-1.7); CALCIUM 9.1 mg/dL (8.5-10.1); CREATININE 0.6 mg/dL (0.6-1.0); GFR 94.3; MAGNESIUM 1.8 mg/dL (1.8-2.4); POTASSIUM 4.1 mmol/L (3.5-5.1); TOTAL BILIRUBIN 0.9 mg/dL (0.2-1.0); TOTAL PROTEIN 6.2 g/dL (6.4-8.2)
[2017-04-23] MEDS: PANTOPRAZOLE IV PUSH 40 MG VIAL. IVP SCH (07:30)
[2017-04-23] MEDS: POTASSIUM CHLORIDE 10 MEQ TABLET.ER. PO SCH ×2 (07:58→20:17)
[2017-04-23 10:54] VITALS: BP 174/69
[2017-04-23] MEDS: NAPROXEN 250 MG TABLET PO PRN (14:05)
--- NOTE | 2017-04-23 14:12 | ACF ---
Admission Criteria Forms ABDOMINAL PAIN Clinical Indications for Admission to Inpatient Care (Place 'X' for any and all applicable criteria): Admission is indicated for ANY ONE of the following(1)(2)(3)(4)(5): [X]I. Inpatient admission required rather than observation care (Also use Abdominal Pain: Observation Care, as appropriate) because of ANY ONE of the following: [ ]a) Severe pain requiring acute inpatient management [X]b) Identification of etiology/finding that requires inpatient care (eg, aortic dissection, free air) [ ]c) Absent bowel sounds with complete ileus(6) [ ]d) Suspected toxic megacolon [ ]e) Severe electrolyte abnormalities requiring inpatient care [ ]f) High fever or infection requiring inpatient admission as indicated by ANY ONE of following(7)(8): [ ] i) Appropriate outpatient or observational care antimicrobial treatment unavailable, not effective, or not feasible [ ] ii) Documented bacteremia [ ] iii) Temperature > 104.9 degrees F (oral) [ ] iv) T >103.1 F (oral) or < 96.8 F(rectal) that does not respond to all emergency treatment measures [ ]g) Signs of intestinal obstruction [B] [ ]h) Hemodynamic instability [ ]i) IV fluid to replace significant ongoing losses (greater than 3 L/m2 per day) (12)(13) [ ]j) Percutaneous or open drainage (eg, abscess, biliary tract ) procedures [ ]k) Parenteral nutrition regimen that must be implemented on inpatient basis [ ]l) Other condition,treatment or monitoring requiring inpatient admission. [ ]II. Peritoneal signs present [ ]III. Surgery needed that cannot be performed on an ambulatory basis. [ ]IV. Evaluation requires patient to not eat or drink for extended period ( eg, more than 24 hours). [ ]V. Contraindications and/or Inappropriate clinical situations for Observational Care in patients with abdominal pain, when ANY ONE of the following is required: [ ]a) Thorough evaluation is required to prevent catastrophic events due to delays in diagnosing (e.g.Mesenteric ischemia) 1,3 [ ]b) Patient with severe pathology or with chronic symptoms unlikely to improve in the ED stay (3) [ ]. General contraindications and/or Inappropriate clinical situations for Observational Care in patients with abdominal pain, when ANY ONE of the following is required: [ ]a) Prediction of prolongation of LOS based on ANY ONE of the following may be considered as a contraindication for observational care 2, 3, 4, 5, 6, 7, 8, 9, 10, 11 [ ]i) Age > 65 yrs. [ ]ii) Patient arriving by ambulance [ ]iii) Patient with high acuity [ ]iv) Patient requiring vital sign monitoring [ ]v) Patient on IV medication [ ]b) Systolic blood pressures 180mmHg 3,12 [ ]c) Patient with altered mental status including delirium and other alteration of consciousness, (3) [ ]d) Patient whose discharge disposition will be to a senior care home or rehabilitation home should not be managed in Emergency Department Observation Unit. CMS rule requires 3 days hospital stay before such placement.3,13 [ ]e) Patient with failure to thrive due to broad array of etiologies 3,16,17 [ ]f) Inability to ambulate 3,14 Extended stay beyond goal length of stay may be needed for(2)(3): [ ]a) Persistent abdominal pain with suspected intra-abdominal process [ ]b) Diagnosed condition requiring continued stay (e.g., pancreatitis, complicated diverticulitis) [ ]c) Surgery (e.g., colectomy) The original [facility] content created by [employer] has been revised. The portions of the content which have been revised are identified through the use of italic text or in bold, and [facility] has neither reviewed nor approved the modified material.All other unmodified content is copyright [facility]. Please see references footnoted in the original [facility] edition 2016 Admission Criteria Met?: Yes GRANT CARIAS Apr 23, 2017 14:12
--- NOTE | 2017-04-23 14:18 | PDOC ---
PROGRESS NOTES Diagnosis DIAGNOSIS acute pancreatitis Problem Problems Medical Problems: (1) Epigastric abdominal pain Status: Acute (2) Hypokalemia Status: Acute (3) Malaise and fatigue Status: Acute (4) Pancreatitis Status: Acute (5) Shortness of breath Status: Acute Assessment Problems Medical Problems: (1) Epigastric abdominal pain Status: Acute (2) Hypokalemia Status: Acute (3) Malaise and fatigue Status: Acute (4) Pancreatitis Status: Acute (5) Shortness of breath Status: Acute PLAN check todays lipase and if trending down we will start clear liquid diet and advance as tolertaed Objective Vital Signs Date Time Temp Pulse Resp B/P (MAP) Pulse Ox O2 Delivery O2 Flow Rate FiO2 04/23/17 10:54 97.4 69 18 174/69 (104) Room Air 96.0 04/23/17 05:14 96 Intake and Output 04/23/17 07:00 Intake Total 1000 ml Balance 1000 ml Intake Oral 0 ml IV Total 1000 ml # Voids 7 Review of Relevant I have reviewed the following items brennan (where applicable) has been applied. Labs Laboratory Tests Test 04/21/17 22:13 04/22/17 06:13 04/23/17 05:42 White Blood Count 5.9 x10^3/uL (4.0-11.0) 4.4 x10^3/uL (4.0-11.0) 4.3 x10^3/uL (4.0-11.0) Red Blood Count 4.47 x10^6/uL (3.50-5.40) 3.96 x10^6/uL (3.50-5.40) 3.96 x10^6/uL (3.50-5.40) Hemoglobin 13.3 g/dL (12.0-15.5) 11.9 g/dL (12.0-15.5) 11.9 g/dL (12.0-15.5) Hematocrit 38.5 % (36.0-47.0) 34.1 % (36.0-47.0) 34.8 % (36.0-47.0) Mean Corpuscular Volume 86 fL (79-100) 86 fL (79-100) 88 fL (79-100) Mean Corpuscular Hemoglobin 30 pg (25-35) 30 pg (25-35) 30 pg (25-35) Mean Corpuscular Hemoglobin Concent 35 g/dL (31-37) 35 g/dL (31-37) 34 g/dL (31-37) Red Cell Distribution Width 14.0 % (11.5-14.5) 13.8 % (11.5-14.5) 13.9 % (11.5-14.5) Platelet Count 193 x10^3/uL (140-400) 154 x10^3/uL (140-400) 156 x10^3/uL (140-400) Neutrophils (%) (Auto) 63 % (31-73) 73 % (31-73) 64 % (31-73) Lymphocytes (%) (Auto) 25 % (24-48) 17 % (24-48) 22 % (24-48) Monocytes (%) (Auto) 9 % (0-9) 9 % (0-9) 8 % (0-9) Eosinophils (%) (Auto) 2 % (0-3) 2 % (0-3) 5 % (0-3) Basophils (%) (Auto) 1 % (0-3) 0 % (0-3) 1 % (0-3) Neutrophils # (Auto) 3.7 x10^3uL (1.8-7.7) 3.2 x10^3uL (1.8-7.7) 2.8 x10^3uL (1.8-7.7) Lymphocytes # (Auto) 1.5 x10^3/uL (1.0-4.8) 0.7 x10^3/uL (1.0-4.8) 0.9 x10^3/uL (1.0-4.8) Monocytes # (Auto) 0.6 x10^3/uL (0.0-1.1) 0.4 x10^3/uL (0.0-1.1) 0.3 x10^3/uL (0.0-1.1) Eosinophils # (Auto) 0.1 x10^3/uL (0.0-0.7) 0.1 x10^3/uL (0.0-0.7) 0.2 x10^3/uL (0.0-0.7) Basophils # (Auto) 0.0 x10^3/uL (0.0-0.2) 0.0 x10^3/uL (0.0-0.2) 0.0 x10^3/uL (0.0-0.2) Sodium Level 142 mmol/L (136-145) 144 mmol/L (136-145) 146 mmol/L (136-145) Potassium Level 3.4 mmol/L (3.5-5.1) 3.0 mmol/L (3.5-5.1) 4.1 mmol/L (3.5-5.1) Chloride Level 102 mmol/L (98-107) 106 mmol/L (98-107) 112 mmol/L (98-107) Carbon Dioxide Level 31 mmol/L (21-32) 30 mmol/L (21-32) 23 mmol/L (21-32) Anion Gap 9 (6-14) 8 (6-14) 11 (6-14) Blood Urea Nitrogen 29 mg/dL (7-20) 25 mg/dL (7-20) 18 mg/dL (7-20) Creatinine 1.0 mg/dL (0.6-1.0) 0.8 mg/dL (0.6-1.0) 0.6 mg/dL (0.6-1.0) Estimated GFR (Cockcroft-Gault) 52.3 67.7 94.3 Glucose Level 101 mg/dL (70-99) 101 mg/dL (70-99) 78 mg/dL (70-99) Calcium Level 9.0 mg/dL (8.5-10.1) 8.5 mg/dL (8.5-10.1) 9.1 mg/dL (8.5-10.1) Total Bilirubin 0.7 mg/dL (0.2-1.0) 0.8 mg/dL (0.2-1.0) 0.9 mg/dL (0.2-1.0) Direct Bilirubin 0.4 mg/dL (0.0-0.2) 0.3 mg/dL (0.0-0.2) Aspartate Amino Transf (AST/SGOT) 87 U/L (15-37) 262 U/L (15-37) 49 U/L (15-37) Alanine Aminotransferase (ALT/SGPT) 34 U/L (14-59) 137 U/L (14-59) 88 U/L (14-59) Alkaline Phosphatase 225 U/L (46-116) 310 U/L (46-116) 272 U/L (46-116) Troponin I Quantitative < 0.017 ng/mL (0-0.055) Total Protein 6.6 g/dL (6.4-8.2) 5.8 g/dL (6.4-8.2) 6.2 g/dL (6.4-8.2) Albumin 3.9 g/dL (3.4-5.0) 3.2 g/dL (3.4-5.0) 3.3 g/dL (3.4-5.0) Lipase 748 U/L (73-393) 825 U/L (73-393) Triglycerides Level 59 mg/dL (0-150) BUN/Creatinine Ratio 30 (6-20) Magnesium Level 1.8 mg/dL (1.8-2.4) Albumin/Globulin Ratio 1.1 (1.0-1.7) Medications Current Medications Albuterol/ Ipratropium (Duoneb) 3 ml 1X ONCE NEB Last administered on 22:11; Start 04/21/17 at 22:15; Stop 04/21/17 at 22:16; Status DC Ondansetron HCl (Zofran) 4 mg PRN Q4HRS PRN IV NAUSEA/VOMITING; Start 04/21/17 at 23:30; Stop 04/22/17 at 23:29; Status DC Morphine Sulfate (Morphine 2mg Syringe) 2 mg PRN Q2HR PRN IV PAIN; Start at 23:30; Stop 04/22/17 at 23:29; Status DC Sodium Chloride 1,000 ml @ 125 mls/hr Q8H IV Last administered on 04/22/17 00: 49; Start 04/21/17 at 23:30; Stop 04/22/17 at 23:29; Status DC Iohexol (Omnipaque 300 Mg/ml) 75 ml 1X ONCE IV Last administered on 04/22/17 01:02; Start 04/22/17 at 00:15; Stop 04/22/17 at 00:16; Status DC Info (Do NOT chart on this entry -- for MONITORING) 1 each PRN DAILY PRN MC SEE COMMENTS; Start 04/22/17 at 00:15; Stop 04/24/17 at 00:14 Pantoprazole Sodium (Protonix Vial) 40 mg DAILYAC IVP Last administered on 07:30; Start 04/22/17 at 07:30 Potassium Chloride 40 meq/ Sodium Chloride 1,020 ml @ 100 mls/hr [id number] IV Last administered on 04/23/17 04:08; Start 04/22/17 at 07:00; Stop 04/23/17 at 14: 03; Status DC Potassium Chloride (Micro-K) 10 meq 1X ONCE PO ; Start 04/22/17 at 06:45; Stop 04/22/17 at 06:46; Status DC Diltiazem HCl (Cardizem 24hr Cd) 180 mg DAILYWSUP PO ; Start 04/22/17 at 17:00; Stop 04/22/17 at 17:00; Status DC Potassium Chloride (Klor-Con) 10 meq BID PO Last administered on 04/23/17 07:58 ; Start 04/22/17 at 09:30 Potassium Chloride (Micro-K) 10 meq 1X ONCE PO ; Start 04/22/17 at 09:45; Stop 04/22/17 at 09:45; Status DC Potassium Chloride (Klor-Con) 10 meq 1X ONCE PO ; Start 04/22/17 at 09:45; Stop 04/22/17 at 09:46; Status DC Diltiazem HCl (Cardizem 24hr Cd) 180 mg DAILYWSUP PO Last administered on 11:15; Start 04/22/17 at 11:15; Stop 04/22/17 at 13:00; Status DC Naproxen (Naprosyn) 250 mg PRN DAILY PRN PO PAIN Last administered on 04/23/17 14:05; Start 04/22/17 at 11:45 Diltiazem HCl (Cardizem 24hr Cd) 180 mg DAILYWSUP PO ; Start 04/23/17 at 17:00 Potassium Chloride/Sodium Chloride 1,000 ml @ 100 mls/hr Q10H IV ; Start at 14:00 Active Scripts Active Reported Preservision Areds Tablet (Vit A/Vit C/Vit E/Zinc/Copper) 1 Each Tablet 1 Each PO BID Meloxicam 7.5 Mg Tablet 7.5 Mg PO DAILY Ocuvite Softgel (Vit C/Vit E/Lutein/Min/[place]-3) 1 Each Capsule 1 Each PO DAILY08 Preservision Areds Softgel (Vit A/Vit C/Vit E/Zinc/Copper) 1 Each Capsule 1 Each PO BID Simvastatin 20 Mg Tablet 1 Tab PO Q3DAYS Cardizem Cd (Diltiazem Hcl) 180 Mg Cap.er.24h 180 Mg PO DAILYWSUP Losartan-Hctz 50-12.5 Mg Tab (Losartan/Hydrochlorothiazide) 1 Each Tablet 1 Tab PO DAILY Klor-Con 10 (Potassium Chloride) 10 Meq Tablet.er 1 Tab PO BID Vitals/I & O Vital Sign - Last 24 Hours 04/22/17 04/22/17 04/22/17 04/23/17 15:00 19:09 22:21 05:14 Temp 98.1 97.9 98.3 97.5 Pulse 77 74 68 88 Resp 18 20 18 20 B/P (MAP) 150/78 (102) 135/69 (91) 144/70 (94) 155/70 (98) Pulse Ox 93 94 96 96 O2 Delivery Room Air Room Air Room Air Room Air 04/23/17 10:54 Temp 97.4 Pulse 69 Resp 18 B/P (MAP) 174/69 (104) O2 Delivery Room Air O2 Flow Rate 96.0 Intake and Output 04/22/17 04/22/17 04/23/17 15:00 23:00 07:00 Intake Total 1000 ml Balance 1000 ml YOLY MAGUIRE MD Apr 23, 2017 14:18
[2017-04-23] MEDS: POTASSIUM CL 40MEQ IN 0.9%NACL 1,000 ML IV SCH (14:45)
[2017-04-23 16:51] VITALS: BP 158/73
[2017-04-23 19:00] VITALS: BP 143/51
[2017-04-23] MEDS ORDERED: ACETAMINOPHEN 325 MG TABLET PO ONE (22:00)
[2017-04-24 05:21] VITALS: BP 166/79
[2017-04-24 06:20] LABS: BASO % 1 % (0-3); EOS # 0.2 x10^3/uL (0.0-0.7); EOS % 4 % (0-3); HEMATOCRIT 33.1 % (36.0-47.0); HEMOGLOBIN 11.1 g/dL (12.0-15.5); LYMPH # 0.9 x10^3/uL (1.0-4.8); LYMPH % 24 % (24-48); MEAN CORPUSCULAR HEMOGLOBIN 30 pg (25-35); MEAN CORPUSCULAR HGB CONC 34 g/dL (31-37); MEAN CORPUSCULAR VOLUME 89 fL (79-100); MONO # 0.4 x10^3/uL (0.0-1.1); MONO % 11 % (0-9); NEUT # 2.1 x10^3uL (1.8-7.7); NEUT % 60 % (31-73); PLATELET COUNT 137 x10^3/uL (140-400); RED CELL DISTRIBUTION WIDTH 13.7 % (11.5-14.5); WHITE BLOOD COUNT 3.6 x10^3/uL (4.0-11.0)
[2017-04-24 06:44] LABS: ALBUMIN/GLOBULIN RATIO 1.1 (1.0-1.7); CALCIUM 8.7 mg/dL (8.5-10.1); CREATININE 0.5 mg/dL (0.6-1.0); GFR 116.4; POTASSIUM 4.5 mmol/L (3.5-5.1); TOTAL BILIRUBIN 0.6 mg/dL (0.2-1.0); TOTAL PROTEIN 5.7 g/dL (6.4-8.2)
[2017-04-24] MEDS: PANTOPRAZOLE IV PUSH 40 MG VIAL. IVP SCH (07:30)
[2017-04-24] MEDS: POTASSIUM CHLORIDE 10 MEQ TABLET.ER. PO SCH (08:50)
[2017-04-24 10:20] VITALS: BP 152/72
[2017-04-24] MEDS: POTASSIUM CL 40MEQ IN 0.9%NACL 1,000 ML IV SCH ×2 (10:49)
[2017-04-24] MEDS ORDERED: LOSA50TA6 PO (13:08)
--- NOTE | 2017-04-24 13:15 | PDOC3 ---
Discharge Summary Visit Information Date of Admission: Apr 21, 2017 Date of Discharge: Apr 24, 2017 Admitting Diagnosis: acute pancreatitis Admitting Diagnosis Comments Pancreatitis likely due to HCTZ Final Diagnosis Problems Medical Problems: (1) Epigastric abdominal pain Status: Acute (2) Hypokalemia Status: Acute (3) Malaise and fatigue Status: Acute (4) Pancreatitis Status: Acute (5) Shortness of breath Status: Acute Problems: Brief Hospital Course Allergies Allergies Coded Allergies Type Severity Reaction Last Updated Verified Penicillins Allergy Intermediate 01/17/17 Yes Vital Signs Vital Signs Date Time Temp Pulse Resp B/P (MAP) Pulse Ox O2 Delivery O2 Flow Rate FiO2 04/24/17 10:20 98.0 74 20 152/72 (98) 96 Room Air 04/23/17 10:54 96.0 Lab Results Laboratory Tests Test 04/23/17 05:42 04/24/17 05:41 White Blood Count 4.3 x10^3/uL (4.0-11.0) 3.6 x10^3/uL (4.0-11.0) Red Blood Count 3.96 x10^6/uL (3.50-5.40) 3.70 x10^6/uL (3.50-5.40) Hemoglobin 11.9 g/dL (12.0-15.5) 11.1 g/dL (12.0-15.5) Hematocrit 34.8 % (36.0-47.0) 33.1 % (36.0-47.0) Mean Corpuscular Volume 88 fL (79-100) 89 fL (79-100) Mean Corpuscular Hemoglobin 30 pg (25-35) 30 pg (25-35) Mean Corpuscular Hemoglobin Concent 34 g/dL (31-37) 34 g/dL (31-37) Red Cell Distribution Width 13.9 % (11.5-14.5) 13.7 % (11.5-14.5) Platelet Count 156 x10^3/uL (140-400) 137 x10^3/uL (140-400) Neutrophils (%) (Auto) 64 % (31-73) 60 % (31-73) Lymphocytes (%) (Auto) 22 % (24-48) 24 % (24-48) Monocytes (%) (Auto) 8 % (0-9) 11 % (0-9) Eosinophils (%) (Auto) 5 % (0-3) 4 % (0-3) Basophils (%) (Auto) 1 % (0-3) 1 % (0-3) Neutrophils # (Auto) 2.8 x10^3uL (1.8-7.7) 2.1 x10^3uL (1.8-7.7) Lymphocytes # (Auto) 0.9 x10^3/uL (1.0-4.8) 0.9 x10^3/uL (1.0-4.8) Monocytes # (Auto) 0.3 x10^3/uL (0.0-1.1) 0.4 x10^3/uL (0.0-1.1) Eosinophils # (Auto) 0.2 x10^3/uL (0.0-0.7) 0.2 x10^3/uL (0.0-0.7) Basophils # (Auto) 0.0 x10^3/uL (0.0-0.2) 0.0 x10^3/uL (0.0-0.2) Sodium Level 146 mmol/L (136-145) 145 mmol/L (136-145) Potassium Level 4.1 mmol/L (3.5-5.1) 4.5 mmol/L (3.5-5.1) Chloride Level 112 mmol/L (98-107) 112 mmol/L (98-107) Carbon Dioxide Level 23 mmol/L (21-32) 22 mmol/L (21-32) Anion Gap 11 (6-14) 11 (6-14) Blood Urea Nitrogen 18 mg/dL (7-20) 15 mg/dL (7-20) Creatinine 0.6 mg/dL (0.6-1.0) 0.5 mg/dL (0.6-1.0) Estimated GFR (Cockcroft-Gault) 94.3 116.4 BUN/Creatinine Ratio 30 (6-20) 30 (6-20) Glucose Level 78 mg/dL (70-99) 83 mg/dL (70-99) Calcium Level 9.1 mg/dL (8.5-10.1) 8.7 mg/dL (8.5-10.1) Magnesium Level 1.8 mg/dL (1.8-2.4) Total Bilirubin 0.9 mg/dL (0.2-1.0) 0.6 mg/dL (0.2-1.0) Aspartate Amino Transf (AST/SGOT) 49 U/L (15-37) 24 U/L (15-37) Alanine Aminotransferase (ALT/SGPT) 88 U/L (14-59) 56 U/L (14-59) Alkaline Phosphatase 272 U/L (46-116) 208 U/L (46-116) Total Protein 6.2 g/dL (6.4-8.2) 5.7 g/dL (6.4-8.2) Albumin 3.3 g/dL (3.4-5.0) 3.0 g/dL (3.4-5.0) Albumin/Globulin Ratio 1.1 (1.0-1.7) 1.1 (1.0-1.7) Lipase 101 U/L (73-393) 65 U/L (73-393) Brief Hospital Course Ms. Jarrett is a 86 old [sex] who presented with epigastric pain , malaise and fatigue She was found to have hypokalemia and elevated Lipase She was diagnosed with acute pancreatitis most likely due to HCTZ that was disconitued She didimprove slowly and was stated on clear liquid diet that was advanced and she tolerated well She will be discharged home Discharge Information Condition at Discharge: Improved Follow Up: As Needed Disposition/Orders: D/C to Home Dischare Medications Current Medications Albuterol/ Ipratropium (Duoneb) 3 ml 1X ONCE NEB Last administered on t 22:11; Start 04/21/17 at 22:15; Stop 04/21/17 at 22:16; Status DC Ondansetron HCl (Zofran) 4 mg PRN Q4HRS PRN IV NAUSEA/VOMITING; Start 04/21/17 at 23:30; Stop 04/22/17 at 23:29; Status DC Morphine Sulfate (Morphine 2mg Syringe) 2 mg PRN Q2HR PRN IV PAIN; Start at 23:30; Stop 04/22/17 at 23:29; Status DC Sodium Chloride 1,000 ml @ 125 mls/hr Q8H IV Last administered on 04/22/17 00: 49; Start 04/21/17 at 23:30; Stop 04/22/17 at 23:29; Status DC Iohexol (Omnipaque 300 Mg/ml) 75 ml 1X ONCE IV Last administered on 04/22/17 01:02; Start 04/22/17 at 00:15; Stop 04/22/17 at 00:16; Status DC Info (Do NOT chart on this entry -- for MONITORING) 1 each PRN DAILY PRN MC SEE COMMENTS; Start 04/22/17 at 00:15; Stop 04/24/17 at 00:14; Status DC Pantoprazole Sodium (Protonix Vial) 40 mg DAILYAC IVP Last administered on 07:30; Start 04/22/17 at 07:30 Potassium Chloride 40 meq/ Sodium Chloride 1,020 ml @ 100 mls/hr [id number] IV Last administered on 04/23/17 04:08; Start 04/22/17 at 07:00; Stop 04/23/17 at 14: 03; Status DC Potassium Chloride (Micro-K) 10 meq 1X ONCE PO ; Start 04/22/17 at 06:45; Stop 04/22/17 at 06:46; Status DC Diltiazem HCl (Cardizem 24hr Cd) 180 mg DAILYWSUP PO ; Start 04/22/17 at 17:00; Stop 04/22/17 at 17:00; Status DC Potassium Chloride (Klor-Con) 10 meq BID PO Last administered on 04/24/17 08:50 ; Start 04/22/17 at 09:30 Potassium Chloride (Micro-K) 10 meq 1X ONCE PO ; Start 04/22/17 at 09:45; Stop 04/22/17 at 09:45; Status DC Potassium Chloride (Klor-Con) 10 meq 1X ONCE PO ; Start 04/22/17 at 09:45; Stop 04/22/17 at 09:46; Status DC Diltiazem HCl (Cardizem 24hr Cd) 180 mg DAILYWSUP PO Last administered on 11:15; Start 04/22/17 at 11:15; Stop 04/22/17 at 13:00; Status DC Naproxen (Naprosyn) 250 mg PRN DAILY PRN PO PAIN Last administered on 04/23/17 14:05; Start 04/22/17 at 11:45 Diltiazem HCl (Cardizem 24hr Cd) 180 mg DAILYWSUP PO Last administered on 16:31; Start 04/23/17 at 17:00 Potassium Chloride/Sodium Chloride 1,000 ml @ 100 mls/hr Q10H IV Last administered on 04/24/17 10:49; Start 04/23/17 at 14:00 Acetaminophen (Tylenol) 650 mg 1X ONCE PO Last administered on 04/23/17 22:09 ; Start 04/23/17 at 22:00; Stop 04/23/17 at 22:01; Status DC Active Scripts Active Reported Preservision Areds Tablet (Vit A/Vit C/Vit E/Zinc/Copper) 1 Each Tablet 1 Each PO BID Meloxicam 7.5 Mg Tablet 7.5 Mg PO DAILY Ocuvite Softgel (Vit C/Vit E/Lutein/Min/[place]-3) 1 Each Capsule 1 Each PO DAILY08 Preservision Areds Softgel (Vit A/Vit C/Vit E/Zinc/Copper) 1 Each Capsule 1 Each PO BID Simvastatin 20 Mg Tablet 1 Tab PO Q3DAYS Cardizem Cd (Diltiazem Hcl) 180 Mg Cap.er.24h 180 Mg PO DAILYWSUP Losartan-Hctz 50-12.5 Mg Tab (Losartan/Hydrochlorothiazide) 1 Each Tablet 1 Tab PO DAILY Klor-Con 10 (Potassium Chloride) 10 Meq Tablet.er 1 Tab PO BID I wilkld/c HCTZ and Meloxicam Patient Instructions Patient Instuctions The patient was adviced to avoid fatty food YOLY MAGUIRE MD Apr 24, 2017 13:15
== END 2017-04-24 13:45 | disposition home or self-care (01) | DRG 440 ==
LOC: ER 21:31 → 1 SOUTH 23:24 → OBSVTOIN 04-22 00:54
PROVIDERS: ADMIT Family Medicine; ATTEND Family Medicine
DX: K85.90 Acute pancreatitis without necrosis or infection, unspecified (principal); E87.6 Hypokalemia; T50.2X5A Adverse effect of carbonic-anhydrase inhibitors, benzothiadiazides and other diuretics, initial encounter; K44.9 Diaphragmatic hernia without obstruction or gangrene; I10 Essential (primary) hypertension; M19.90 Unspecified osteoarthritis, unspecified site; Z79.899 Other long term (current) drug therapy; Z79.891 Long term (current) use of opiate analgesic; Z90.710 Acquired absence of both cervix and uterus; Z88.0 Allergy status to penicillin; Z90.49 Acquired absence of other specified parts of digestive tract
CPT/HCPCS: 36415; 71010; 74177; 76700; 80048; 80053; 80076; 83690; 83735; 84478; 84484; 85027; 93005; 94640; C9113; G0379; J7620; Q9967; 99285-25; J7030

== ENCOUNTER 2018-01-11 16:04 | Emergency (ER) | payer MEDICARE, BC ==
[~2018-01-11] VITALS: Ht 157.5 cm; Wt 66.7 kg
[~2018-01-11 16:04] MED LIST changes: -LOSA1TAB16 PO; +LOSA1TAB19 PO; +LOSA50TA6 PO; +VIT1TABL34 PO
[2018-01-11 17:09] LABS: BASO % 1 % (0-3); EOS # 0.1 x10^3/uL (0.0-0.7); EOS % 2 % (0-3); HEMATOCRIT 36.6 % (36.0-47.0); HEMOGLOBIN 12.4 g/dL (12.0-15.5); LYMPH # 1.3 x10^3/uL (1.0-4.8); LYMPH % 26 % (24-48); MEAN CORPUSCULAR HEMOGLOBIN 29 pg (25-35); MEAN CORPUSCULAR HGB CONC 34 g/dL (31-37); MEAN CORPUSCULAR VOLUME 85 fL (79-100); MONO # 0.6 x10^3/uL (0.0-1.1); MONO % 13 % (0-9); NEUT # 2.9 x10^3uL (1.8-7.7); NEUT % 58 % (31-73); PLATELET COUNT 192 x10^3/uL (140-400); RED BLOOD COUNT 4.31 x10^6/uL (3.50-5.40); RED CELL DISTRIBUTION WIDTH 14.4 % (11.5-14.5); WHITE BLOOD COUNT 4.9 x10^3/uL (4.0-11.0)
[2018-01-11 17:28] LABS: ALBUMIN 3.3 g/dL (3.4-5.0); CALCIUM 9.5 mg/dL (8.5-10.1); CREATININE 0.5 mg/dL (0.6-1.0); GFR 116.2; MAGNESIUM 1.7 mg/dL (1.8-2.4); POTASSIUM 4.3 mmol/L (3.5-5.1); TOTAL BILIRUBIN 0.5 mg/dL (0.2-1.0); TOTAL PROTEIN 6.6 g/dL (6.4-8.2)
--- NOTE | 2018-01-11 17:30 | PHYS DOC ---
Past History Past Medical History: Hypertension Past Surgical History: Hysterectomy Alcohol Use: None Drug Use: None Adult General Chief Complaint Chief Complaint: LOWER EXTREMITY SWELLING HPI HPI 87-year-old female patient with history of chronic lower extremity edema complaining of increasing of lower extremity edema for the last few days and having a blister in the right lower extremity since this morning. Patient complains of bilateral lower extremity pain that is more than her usual. Patient denies shortness of breath, fever and chills, nausea and vomiting, focal neuro deficit. Patient used to take diuretic that was stopped after she had pancreatitis last year. Review of Systems Review of Systems Constitutional: Denies fever or chills [] Eyes: Denies change in visual acuity, redness, or eye pain [] HENT: Denies nasal congestion or sore throat [] Respiratory: Denies cough or shortness of breath [] Cardiovascular: No additional information not addressed in HPI [] GI: Denies abdominal pain, nausea, vomiting, bloody stools or diarrhea [] : Denies dysuria or hematuria [] Musculoskeletal: Denies back pain or joint pain [] Integument: Denies rash or skin lesions [] Neurologic: Denies headache, focal weakness or sensory changes [] Endocrine: Denies polyuria or polydipsia [] All other systems were reviewed and found to be within normal limits, except as documented in this note. Allergies Allergies Allergies Coded Allergies Type Severity Reaction Last Updated Verified Penicillins Allergy Intermediate 01/17/17 Yes Physical Exam Physical Exam Constitutional: Well developed, well nourished, no acute distress, non-toxic appearance. [] HENT: Normocephalic, atraumatic, bilateral external ears normal, oropharynx moist, no oral exudates, nose normal. [] Eyes: PERRLA, EOMI, conjunctiva normal, no discharge. [] Neck: Normal range of motion, no tenderness, supple, no stridor. [] Cardiovascular:Heart rate regular rhythm, no murmur [] Lungs & Thorax: Bilateral breath sounds clear to auscultation [] Abdomen: Bowel sounds normal, soft, no tenderness, no masses, no pulsatile masses. [] Skin: Warm, dry, no erythema, no rash. [] Back: No tenderness, no CVA tenderness. [] Extremities: No tenderness, no cyanosis, no clubbing, ROM intact, bilateral lower extremity 2+ erythema and 2 x 2 centimeter blister containing clear liquid in right lower extremity without sign of abscess or cellulitis or infection Neurologic: Alert and oriented X 3, normal motor function, normal sensory function, no focal deficits noted. [] Psychologic: Affect normal, judgement normal, mood normal. [] Current Patient Data Vital Signs Vital Signs Date Time Temp Pulse Resp B/P (MAP) Pulse Ox O2 Delivery O2 Flow Rate FiO2 01/11/18 16:29 97.8 91 24 97 Room Air Lab Results Laboratory Tests Test 01/11/18 16:45 White Blood Count 4.9 x10^3/uL (4.0-11.0) Red Blood Count 4.31 x10^6/uL (3.50-5.40) Hemoglobin 12.4 g/dL (12.0-15.5) Hematocrit 36.6 % (36.0-47.0) Mean Corpuscular Volume 85 fL (79-100) Mean Corpuscular Hemoglobin 29 pg (25-35) Mean Corpuscular Hemoglobin Concent 34 g/dL (31-37) Red Cell Distribution Width 14.4 % (11.5-14.5) Platelet Count 192 x10^3/uL (140-400) Neutrophils (%) (Auto) 58 % (31-73) Lymphocytes (%) (Auto) 26 % (24-48) Monocytes (%) (Auto) 13 % (0-9) H Eosinophils (%) (Auto) 2 % (0-3) Basophils (%) (Auto) 1 % (0-3) Neutrophils # (Auto) 2.9 x10^3uL (1.8-7.7) Lymphocytes # (Auto) 1.3 x10^3/uL (1.0-4.8) Monocytes # (Auto) 0.6 x10^3/uL (0.0-1.1) Eosinophils # (Auto) 0.1 x10^3/uL (0.0-0.7) Basophils # (Auto) 0.0 x10^3/uL (0.0-0.2) EKG EKG [] Radiology/Procedures Radiology/Procedures [] Course & Med Decision Making Course & Med Decision Making Pertinent Labs reviewed. (See chart for details) Evaluation of patient in ER showed 87-year-old female patient with history of chronic lower extremity edema that getting gradually worse with developing a blister including clear liquid. Patient had unremarkable BMP and renal function tests. Plan to give prescription for Lasix 20 mg and potassium 25 mg daily. Zia wrap was applied in ER and patient instructed to take high magnesium diet because of magnesium level of 1.7. Dragon Disclaimer Dragon Disclaimer This electronic medical record was generated, in whole or in part, using a voice recognition dictation system. Departure Departure: Impression: Primary Impression: Lower extremity edema Additional Impression: Hypomagnesemia Disposition: HOME, SELF-CARE (At 1804) Condition: STABLE Referrals: ARTHUR PURVIS (PCP) Patient Instructions: Hypomagnesemia, Peripheral Edema Additional Instructions: Follow-up with your primary care physician in 3-5 days Return to ER if not getting better Scripts Potassium Bicarbonate/Cit Ac (POTASSIUM 25 MEQ TABLET EFF) 25 Meq Tablet.eff 25 MEQ PO DAILY, #30 TAB Prov: RALPH LEON MD 01/11/18 Furosemide (LASIX) 20 Mg Tablet 1 TAB PO DAILY, #30 TAB 5 Refills Prov: RALPH LEON MD 01/11/18 Problem Qualifiers RALPH LEON MD Jan 11, 2018 17:30
[2018-01-11] MEDS ORDERED: FURO-69 PO (18:06)
[2018-01-11] MEDS ORDERED: POTA25TA4 PO (18:06)
[2018-01-11 18:29] VITALS: BP 162/72
== END 2018-01-11 18:25 | disposition home or self-care (01) ==
LOC: ER 16:04
DX: R60.0 Localized edema (principal); E83.42 Hypomagnesemia; I10 Essential (primary) hypertension; M79.605 Pain in left leg; M79.604 Pain in right leg; Z88.0 Allergy status to penicillin
CPT/HCPCS: 36415; 80053; 83735; 83880; 85025; 99284